=== PATIENT | female | born 1990 | race Caucasian/White ===

== ENCOUNTER → 2020-07-07 13:52 | Outpatient (BNVA) | payer OTHER, SELFPAY | PROVIDERS: Visit Provider Orthopaedic Surgery | DX: M67.431 Ganglion, right wrist (principal) | CPT/HCPCS: 99202 ==

== ENCOUNTER 2021-04-28 11:28 | Outpatient (REF) | payer OTHER, SELFPAY | END 2021-04-28 11:29 | disposition home or self-care (01) | LOC: HO.LAB 11:28 | PROVIDERS: Visit Provider Obstetrics & Gynecology | DX: R87.610 Atypical squamous cells of undetermined significance on cytologic smear of cervix (ASC-US) (principal); R87.810 Cervical high risk human papillomavirus (HPV) DNA test positive | CPT/HCPCS: 57454; 88305; 88342; 88360 ==

== ENCOUNTER 2021-05-05 14:59 | Outpatient (REF) | payer OTHER, SELFPAY ==
[2021-05-06 03:31] LABS: CT PCR NOT DETECTED (Not Detect.); NG PCR NOT DETECTED (Not Detect.)
[2021-05-06 08:50] LABS: BV Int Neg Control Negative (Negative); BV Int Pos Control Positive (Positive)
== END 2021-05-05 15:00 | disposition home or self-care (01) ==
LOC: HO.LAB 14:59
PROVIDERS: PCP Student in an Organized Health Care Education/Training Program; Visit Provider Obstetrics & Gynecology
DX: N76.0 Acute vaginitis (principal); B96.89 Other specified bacterial agents as the cause of diseases classified elsewhere
CPT/HCPCS: 87480; 87491; 87510; 87591; 87660; 99212

== ENCOUNTER → 2021-05-13 11:33 | Outpatient (BNVA) | payer OTHER, SELFPAY | PROVIDERS: PCP Student in an Organized Health Care Education/Training Program; Visit Provider Obstetrics & Gynecology ==

== ENCOUNTER → 2022-06-06 14:54 | Outpatient (BNVA) | payer OTHER, SELFPAY | PROVIDERS: PCP Student in an Organized Health Care Education/Training Program; Referring Provider Student in an Organized Health Care Education/Training Program; Visit Provider Surgery | DX: K64.8 Other hemorrhoids (principal) | CPT/HCPCS: 46600; 99202 ==

== ENCOUNTER 2022-10-18 14:43 | Outpatient (REF) | payer OTHER, SELFPAY ==
[2022-10-19 04:18] LABS: CT PCR NOT DETECTED (Not Detect.); NG PCR NOT DETECTED (Not Detect.)
[2022-10-19 15:38] LABS: BV Int Neg Control Negative (Negative); BV Int Pos Control Positive (Positive)
== END 2022-10-18 14:44 | disposition home or self-care (01) ==
LOC: HO.LNP 14:43
PROVIDERS: Visit Provider Advanced Practice Midwife
DX: B37.31 Acute candidiasis of vulva and vagina (principal); Z11.3 Encounter for screening for infections with a predominantly sexual mode of transmission
CPT/HCPCS: 0353U; 87480; 87510; 87660

== ENCOUNTER 2023-05-23 15:06 | Outpatient (REF) | payer OTHER, SELFPAY ==
[2023-05-23 17:50] LABS: Estimated Average Glucose 80 mg/dL; Hemoglobin A1c % 4.4 % (<6.0)
[2023-05-23 18:12] LABS: Alanine Aminotransferase 10 U/L (0-31); Aspartate Amino Transferase 12 U/L (5-31)
[2023-05-24 08:54] LABS: HIV AB/AG Nonreactive (Nonreactive); HIV Num 1 0.05 S/CO (0.00-0.99)
[2023-05-24 14:49] LABS: BV Int Neg Control Negative (Negative); BV Int Pos Control Positive (Positive)
== END 2023-05-23 15:07 | disposition home or self-care (01) ==
LOC: HO.CHCLDS 15:06
PROVIDERS: Visit Provider Advanced Practice Midwife
DX: Z11.3 Encounter for screening for infections with a predominantly sexual mode of transmission (principal); Z11.4 Encounter for screening for human immunodeficiency virus [HIV]; B37.31 Acute candidiasis of vulva and vagina; N89.8 Other specified noninflammatory disorders of vagina; Z79.899 Other long term (current) drug therapy; Z83.3 Family history of diabetes mellitus
CPT/HCPCS: 83036; 84450; 84460; 87389; 87480; 87510; 87660

== ENCOUNTER 2023-06-29 09:36 | Outpatient (AMB) | payer OTHER, SELFPAY ==
--- NOTE | 2023-06-29 09:40 | MHC.OFFVIS ---
Intake Vital Signs 06/29/23 09:41 Height 5 ft 11 in Weight 201 lb 6 oz BMI 28.1 BP 112/64 Blood Pressure Location Rt brachial Position Sitting Respiration 17 Pulse 93 Pulse Source Pulse Oximeter Pulse Oximetry (%) 100 Oxygen Delivery Method Room Air Intake Visit Reasons: Migraines, left vertebral stent , Vertebral artery dissection Intake Note: Pt presents to the office for new pt evaluation for Migraines. 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 About 1 year ago she had severe left shoulder pain, neck pain - found to have vertebral artery dissection, had vertebral artery stent done.she was seen by neurosurgery 6 mths after the procedure and was told that the stent was stable. she reports long h/o migraines Initially the pain was in her TMJ and ears and then transforms to unilateral eye pain and temperoparietal headache, pressure or pounding - she saw ENT and was told it was migraines as she also had nausea vomiting photophobia phonophobia, tunnel vision, dizziness etc.They lasted few days and had multiple ER visits.she had 2-3 migraines lasting 3-4 days a episode. Since her vertebral artery stent , the migraines have changed. Now she feels the headaches start in her neck and radiates to eye temporal region and ears with nausea, vomiting, photophobia phonophobia . It can last 1-2 days. It is less frequent now- 1 a month. she takes tylenol as needed or tries to sleep it off.she was tried on butalbital , gabapentin 100mg may help. Her menstrual periods are regular. she has bruxism and invisalign has helped a little. she reports some gasping arousals when she is congested. 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 Reproductive History Menstrual Age of Menarche: 13 Physical Exam Vital Signs: Last Vital Signs Pulse 93 06/29/23 09:41 Resp 17 06/29/23 09:41 BP 112/64 06/29/23 09:41 Pulse Ox 100 06/29/23 09:41 Oxygen Delivery Method Room Air 06/29/23 09:41 BMI result Body Mass Index 28.1 Const Orientation/consciousness: patient oriented x3 Eyes Pupils: Equal, round and reactive pupils present Neck Neck: Yes no meningeal signs Neuro Other: mallampatti grade 4 Gustavo tightness of TMJ General: patient oriented x3, gait normal, tone normal, moves all extremities, Normal light touch and pain sensation, no meningeal signs and no focal motor deficits Cranial nerves: Yes Facial sensation intact/muscles of mastication intact, Yes Equal, round and reactive pupils present, Yes Bilaterally intact EOM present, Yes Nystagmus not present, Yes Normal facial strength present, Yes Midline tongue present and Yes Symmetric palate elevation present Cognition (Neuro): normal cognition Gait exam (Neuro): Normal gait present Motor exam (neuro): 5/5 motor strength present throughout and Normal motor muscle tone present throughout Deep tendon reflexes (DTR's): Right triceps reflex intensity grade: 2+, Left triceps reflex intensity grade: 2+, Rt Biceps (C5, C6): 2+, Left biceps reflex intensity grade: 2+, Right brachioradialis reflex intensity grade: 2+, Left brachioradialis reflex intensity grade: 2+, Right patellar reflex intensity grade: 2+ and Left patellar reflex intensity grade: 2+ Coordination: [id number] test normal Assessment & Plan Assessment & Plan (1) Migraine headache: Code(s): G43.909 - Migraine, unspecified, not intractable, without status migrainosus Qualifiers: Migraine type: migraine (< 15 days per month) without aura (2) Vertebral artery dissection: Code(s): I77.74 - Dissection of vertebral artery (3) TMJ (temporomandibular joint disorder): Code(s): M26.609 - Unspecified temporomandibular joint disorder, unspecified side Plan H/o left vertebral artery dissection with a stent - f/u neurosurgery at [facility] I will trail her on magnesium 400mgq hs Gabapentin 300mg qhs Vit B 2 400mg qam F/u Dentist for invislign and possible security officers and guards will consider PT and muscle relaxant DO NOT USE TRIPTANS due to h/o vertebral artery dissection Notes form [facility] Medications: New magnesium oxide 400 mg PO BEDTIME 30 tabs 6RF gabapentin 300 mg PO BEDTIME 30 caps 6RF riboflavin (vitamin B2) 400 mg PO QAM 30 tabs 6RF Coding Level of Care Code New Pt Level 4 (63923) Diagnoses Migraine headache G43.909 Migraine type: migraine (< 15 days per month) without aura Vertebral artery dissection I77.74 TMJ (temporomandibular joint disorder) M26.609
[2023-06-29 09:41] VITALS: BP 112/64; PULSE 93; RESP 17; O2SAT 100; BMI 28.1
== END 2023-06-29 10:28 | disposition home or self-care (01) ==
PROVIDERS: PCP Student in an Organized Health Care Education/Training Program; Visit Provider Psychiatry & Neurology Neurology
DX: G43.909 Migraine, unspecified, not intractable, without status migrainosus (principal); I77.74 Dissection of vertebral artery; M26.609 Unspecified temporomandibular joint disorder, unspecified side
CPT/HCPCS: 99204

== ENCOUNTER → 2023-06-29 09:36 | Outpatient (BNVA) | payer OTHER, SELFPAY | PROVIDERS: PCP Student in an Organized Health Care Education/Training Program; Visit Provider Psychiatry & Neurology Neurology | DX: G43.909 Migraine, unspecified, not intractable, without status migrainosus (principal); I77.74 Dissection of vertebral artery; M26.609 Unspecified temporomandibular joint disorder, unspecified side | CPT/HCPCS: 99202 ==

== ENCOUNTER 2023-09-05 17:46 | Outpatient (REF) | payer OTHER, SELFPAY ==
[2023-09-06 08:39] LABS: Bacterial Vaginosis PCR NEGATIVE (Negative); Candida Group PCR NOT DETECTED (Not Detect); Candida glab krusei PCR NOT DETECTED (Not Detect); Trichomonas vaginalis PCR NOT DETECTED (Not Detect)
== END 2023-09-05 17:47 | disposition home or self-care (01) ==
LOC: HO.HHCLNP 17:46
PROVIDERS: Visit Provider Advanced Practice Midwife
DX: N89.8 Other specified noninflammatory disorders of vagina (principal)
CPT/HCPCS: 0352U

== ENCOUNTER 2023-09-13 13:54 | Outpatient (REF) | payer OTHER, SELFPAY ==
--- NOTE | ~2023-09-13 | US_ITS ---
EXAMINATION: US PELVIS CLINICAL INFORMATION: Heavy menses. Vaginal bleeding. Possible PE. COMPARISON: None available. TECHNIQUE: Ultrasound of the pelvis is performed using both transabdominal and transvaginal transducers along with Doppler. Transvaginal imaging is performed due to inadequate visualization transabdominally. FINDINGS: Uterus: The uterus is anteverted and measures 7.3 x 2.9 x 3.8 cm. The double wall endometrial thickness is 3 mm. The uterus is smooth in contour and has normal myometrial echogenicity. No visible fibroid. Adnexa: Right ovary measures 3.2 x 2.3 x 1.4 cm. Volume 5.4 mL. Normal color Doppler. Left ovary measures 3.2 x 1.4 x 1.5 cm. Volume 3.5 mL. Normal color Doppler. US/US pelvic and transvaginal IMPRESSION: Unremarkable pelvic ultrasound.
== END 2023-09-13 13:55 | disposition home or self-care (01) ==
LOC: HO.US 13:54
PROVIDERS: PCP Student in an Organized Health Care Education/Training Program; Visit Provider Advanced Practice Midwife
DX: N92.0 Excessive and frequent menstruation with regular cycle (principal)
CPT/HCPCS: 76830; 76856

== ENCOUNTER 2023-12-26 10:06 | Outpatient (AMB) | payer OTHER, SELFPAY ==
--- NOTE | 2023-12-26 10:10 | A.OFFVIS_ITS ---
Vital Signs 12/26/23 10:11 Height 5 ft 11 in BP 115/74 Blood Pressure Location Lt brachial Position Sitting Pulse 90 Pulse Source Pulse Oximeter Pulse Oximetry (%) 99 Oxygen Delivery Method Room Air Intake Visit Reasons: Follow up Dough Puncher Required: No Bowling Ball Patcher: Bowling Ball Patcher Present Accompanied by: Self / Same As Patient Allergies soy Allergy (Verified 12/26/23 10:13) throat swelling tree and shrub pollen Allergy (Verified 12/26/23 10:13) Fatigued IVP Allergy (Intermediate, Uncoded 06/29/23 09:45) Headache Medication List - Last Reconciled 12/26/23 by María Esteban MD aspirin 81 mg PO DAILY gabapentin 300 mg PO BEDTIME magnesium oxide 400 mg PO BEDTIME riboflavin (vitamin B2) 400 mg PO QAM triamcinolone acetonide 0.1% appl topical DAILY HPI Comments Details: 33y/o right handed female with h/o Tricia Danlos - hypermobile type, 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 she still has episodes of jaw clenching. Initial visit history: About 1 year ago she had severe left shoulder pain, neck pain - found to have vertebral artery dissection, had vertebral artery stent done.she was seen by neurosurgery 6 mths after the procedure and was told that the stent was stable. she reports long h/o migraines Initially the pain was in her TMJ and ears and then transforms to unilateral eye pain and temperoparietal headache, pressure or pounding - she saw ENT and was told it was migraines as she also had nausea vomiting photophobia phonophobia, tunnel vision, dizziness etc.They lasted few days and had multiple ER visits.she had 2-3 migraines lasting 3-4 days a episode. Since her vertebral artery stent , the migraines have changed. Now she feels the headaches start in her neck and radiates to eye temporal region and ears with nausea, vomiting, photophobia phonophobia . It can last 1-2 days. It is less frequent now- 1 a month. she takes tylenol as needed or tries to sleep it off.she was tried on butalbital , gabapentin 100mg may help. Her menstrual periods are regular. she has bruxism and invisalign has helped a little. she reports some gasping arousals when she is congested. 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 Reproductive History Menstrual Age of Menarche: 13 Physical Exam Vital Signs: Last Vital Signs Pulse 90 12/26/23 10:11 BP 115/74 12/26/23 10:11 Pulse Ox 99 12/26/23 10:11 Oxygen Delivery Method Room Air 12/26/23 10:11 Const Orientation/consciousness: patient oriented x3 Eyes Pupils: Equal, round and reactive pupils present Neck Neck: Yes no meningeal signs Neuro Other: mallampatti grade 4 Gustavo tightness of TMJ General: patient oriented x3, gait normal, tone normal, moves all extremities, Normal light touch and pain sensation, no meningeal signs and no focal motor deficits Cranial nerves: Yes Facial sensation intact/muscles of mastication intact, Yes Equal, round and reactive pupils present, Yes Bilaterally intact EOM present, Yes Nystagmus not present, Yes Normal facial strength present, Yes Midline tongue present and Yes Symmetric palate elevation present Cognition (Neuro): normal cognition Gait exam (Neuro): Normal gait present Motor exam (neuro): 5/5 motor strength present throughout and Normal motor muscle tone present throughout Coordination: [id number] test normal Assessment & Plan Assessment & Plan (1) Migraine headache: Code(s): G43.909 - Migraine, unspecified, not intractable, without status migrainosus Category: Medical Qualifiers: Migraine type: unspecified Status migrainosus presence: without status migrainosus Intractability: not intractable Qualified Code(s): G43.909 - Migraine, unspecified, not intractable, without status migrainosus (2) Vertebral artery dissection: Code(s): I77.74 - Dissection of vertebral artery (3) TMJ (temporomandibular joint disorder): Code(s): M26.609 - Unspecified temporomandibular joint disorder, unspecified side Category: Medical Plan H/o left vertebral artery dissection with a stent - f/u neurosurgery at [facility] Continue magnesium 400mgq hs Gabapentin 300mg qhs - takes PRN F/u Dentist for invislign and possible guard immigration will consider PT and muscle relaxant DO NOT USE TRIPTANS due to h/o vertebral artery dissection Notes form [facility] Orders: Orders PT Evaluation and Treatment Today M26.609 - Unspecified temporomandibular joint disorder, unspecified side Medications: Discontinued riboflavin (vitamin B2) Discontinued Reason: Patient no longer taking 400 mg PO QAM 30 tabs 6RF Coding Level of Care Code Est Pt Level 4 (86489) Complex EM visit Add On G2211 Diagnoses Migraine without status migrainosus, not intractable, unspecified migraine type G43.909 Migraine type: unspecified Status migrainosus presence: without status migrainosus Intractability: not intractable Vertebral artery dissection I77.74 TMJ (temporomandibular joint disorder) M26.609
[2023-12-26 10:11] VITALS: BP 115/74; PULSE 90; O2SAT 99
== END 2023-12-26 10:33 | disposition home or self-care (01) ==
PROVIDERS: PCP Student in an Organized Health Care Education/Training Program; Visit Provider Psychiatry & Neurology Neurology
DX: G43.909 Migraine, unspecified, not intractable, without status migrainosus (principal); I77.74 Dissection of vertebral artery; M26.609 Unspecified temporomandibular joint disorder, unspecified side
CPT/HCPCS: 99214; G2211

== ENCOUNTER → 2023-12-26 10:06 | Outpatient (BNVA) | payer OTHER, SELFPAY | PROVIDERS: PCP Student in an Organized Health Care Education/Training Program; Visit Provider Psychiatry & Neurology Neurology | DX: G43.909 Migraine, unspecified, not intractable, without status migrainosus (principal); M26.609 Unspecified temporomandibular joint disorder, unspecified side; I77.74 Dissection of vertebral artery | CPT/HCPCS: 99212 ==

== ENCOUNTER 2024-02-05 14:41 | Outpatient (REF) | payer OTHER, SELFPAY ==
[2024-02-06 09:24] LABS: Herpes Simplex Type 1 IgG <0.90 index; Herpes Simplex Type 2 IgG <0.90 index
[2024-02-06 13:39] LABS: Bacterial Vaginosis PCR POSITIVE (Negative); Candida Group PCR DETECTED (Not Detect); Candida glab krusei PCR NOT DETECTED (Not Detect); Trichomonas vaginalis PCR NOT DETECTED (Not Detect)
== END 2024-02-05 14:42 | disposition home or self-care (01) ==
LOC: HO.HHCL 14:41
PROVIDERS: Visit Provider Advanced Practice Midwife
DX: L29.3 Anogenital pruritus, unspecified (principal); Z11.3 Encounter for screening for infections with a predominantly sexual mode of transmission
CPT/HCPCS: 0352U; 36415; 86695; 86696; 87255

== ENCOUNTER 2024-07-22 13:07 | Outpatient (AMB) | payer OTHER, SELFPAY ==
--- NOTE | 2024-07-22 13:11 | MHC.OFFVIS ---
Vital Signs 07/22/24 13:12 Height 5 ft 11 in Weight 240 lb BMI 33.5 Intake Visit Reasons: Follow up-[facility] Intake Note: patient following up PT. 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 The aura lasts 2 hrs - these migraines lasts for 3-4 days she also has migraines without aura during periods .It lasts 1-2 days , she tries to sleeps it off, and takes gabapentin.she does not take gabapentin regularly .she is wearing invisalign. she still has episodes of jaw clenching. Initial visit history: About 1 year ago she had severe left shoulder pain, neck pain - found to have vertebral artery dissection, had vertebral artery stent done.she was seen by neurosurgery 6 mths after the procedure and was told that the stent was stable. she reports long h/o migraines Initially the pain was in her TMJ and ears and then transforms to unilateral eye pain and temperoparietal headache, pressure or pounding - she saw ENT and was told it was migraines as she also had nausea vomiting photophobia phonophobia, tunnel vision, dizziness etc.They lasted few days and had multiple ER visits.she had 2-3 migraines lasting 3-4 days a episode. Since her vertebral artery stent , the migraines have changed. Now she feels the headaches start in her neck and radiates to eye temporal region and ears with nausea, vomiting, photophobia phonophobia . It can last 1-2 days. It is less frequent now- 1 a month. she takes tylenol as needed or tries to sleep it off.she was tried on butalbital , gabapentin 100mg may help. Her menstrual periods are regular. she has bruxism and invisalign has helped a little. she reports some gasping arousals when she is congested. 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 Reproductive History Menstrual Age of Menarche: 13 Physical Exam Const Orientation/consciousness: patient oriented x3 Eyes Pupils: Equal, round and reactive pupils present Neck Neck: Yes no meningeal signs Neuro Other: mallampatti grade 4 Gustavo tightness of TMJ General: patient oriented x3, gait normal, tone normal, moves all extremities, Normal light touch and pain sensation, no meningeal signs and no focal motor deficits Cranial nerves: Yes Facial sensation intact/muscles of mastication intact, Yes Equal, round and reactive pupils present, Yes Bilaterally intact EOM present, Yes Nystagmus not present, Yes Normal facial strength present, Yes Midline tongue present and Yes Symmetric palate elevation present Cognition (Neuro): normal cognition Gait exam (Neuro): Normal gait present Motor exam (neuro): 5/5 motor strength present throughout and Normal motor muscle tone present throughout Coordination: [id number] test normal Assessment & Plan Assessment & Plan (1) Migraine with aura, intractable, without status migrainosus: Code(s): G43.119 - Migraine with aura, intractable, without status migrainosus Category: Medical (2) Migraine headache: Code(s): G43.909 - Migraine, unspecified, not intractable, without status migrainosus Category: Medical Qualifiers: Intractability: not intractable Migraine type: unspecified Status migrainosus presence: without status migrainosus Qualified Code(s): G43.909 - Migraine, unspecified, not intractable, without status migrainosus (3) Vertebral artery dissection: Code(s): I77.74 - Dissection of vertebral artery (4) TMJ (temporomandibular joint disorder): Code(s): M26.609 - Unspecified temporomandibular joint disorder, unspecified side Category: Medical Plan I will trial her on baclofen 5mg qhs and zofran 4 mg as needed for nausea H/o left vertebral artery dissection with a stent - f/u neurosurgery at [facility] Continue magnesium 400mgq hs Gabapentin 300mg qhs - takes PRN F/u Dentist for invislign and possible building guard deputy sheriff will consider PT DO NOT USE TRIPTANS due to h/o vertebral artery dissection Notes form [facility] Medications: New baclofen 5 mg PO BEDTIME 30 tabs 6RF ondansetron 4 mg PO Q8H PRN 10 tabs 0RF nausea and vomiting Coding Level of Care Code Est Pt Level 4 (68710) Complex EM visit Add On G2211 Diagnoses Migraine with aura, intractable, without status migrainosus G43.119 Migraine without status migrainosus, not intractable, unspecified migraine type G43.909 Intractability: not intractable Migraine type: unspecified Status migrainosus presence: without status migrainosus Vertebral artery dissection I77.74 TMJ (temporomandibular joint disorder) M26.609
[2024-07-22 13:12] VITALS: BMI 33.5
--- OUTSIDE RECORDS SUMMARY | 2024-07-22 14:28 | XMS_ITS | Encounter Summary ---
Author Organization [employer] Address [address] [place] [address] Care Team Providers Care Sales Professional Bilingual Name Role Phone Yoko Zhang MD Primary Care Provider [phone] Encounter Details Date Type Department Care Team ([facility] st Contact Info) Description 03/17/2023 Orders Only [facility] [address], [place] [id number] Nae Villareal MD [address] [place] [address] Vaginal discharge (Primary Dx) Social History Tobacco Use Types Packs/Day Years Used Date Smoking Tobacco: Never Smokeless Tobacco: Never Alcohol Use Standard Drinks/Week Comments Never 0 (1 standard drink = 0.6 oz pur e alcohol) Housing Stability Answer Date Recorded What is your housing situation today? I have alvaro tomlinson 01/02/[address] you li ve. Do you have problems with any of the following? None of the above 01/02/2023 Food Insecurity Answer Date Recorded Within the past 12 months, y ou worried that your food would run out before you got money to buy more: Never True 01/02/2023 Within the past 12 months,th e food you bought just didn't last and you didn't have enough money to get more: Never True Transportation Answer Date Recorded In the past 12 months, has l ack of transportation kept you from medical appts, meetings, work or from getting things needed for daily living? No 01/02/2023 Utilities Answer Date Recorded In the past 12 months, has t he electric, gas, oil or water company threatened to shut off services in your home? No 01/02/2023 Comments No Sex and Gender Information Value Date Recorded Sex Assigned at Female 01/17/2022 10:36 AM EDT Legal Sex Female 10:36 AM EDT Gender Identity Female 01/17/2022 10:36 AM EDT Sexual Orientation Choose not to disclose 2021 10:36 AM EDT documented as of this encounter Plan of Treatment Not on file documented as of this encounter Visit Diagnoses Diagnosis Vaginal discharge- Primary Leukorrhea, not specified as infective documented in this encounter Care Teams Sales Professional Bilingual Relationship Specialty Start Date End Date Yoko Zhang MD [address] [place] [phone] PCP - General Family Medicine 06/21/19 documented as of this encounter
--- OUTSIDE RECORDS SUMMARY | 2024-07-22 14:28 | XMS_ITS | Data Portability ---
Author Organization [place] - [facility], Allergy Address [address] [address] Assessment No assessment recorded. Plan of Treatment Reminders Order Date Submit Date Provider Last Modified By Organization Details Last Modified Time Details Appointments None record ed. Lab None record ed. Referral None record ed. Procedures None record ed. Surgeries None record ed. Imaging None record ed. Medication Orders None record ed. Patient TargetsNo targets recorded. Patient Instructions Encounter Date Encounter Id Patient Instructions Last Modified By Organization Details Last Modified Time 08/11/2023 1555 Exam is not typical for thrush. Patient would like to d/c nystatin and I find this reasonable. For the halitosis, reviewed oral hygiene practices and recommend discussing with dentist. For the tonsil stone, recommend saltwater gargles after meals and before bed. Discussed that EBV titers indicate past infection, not re-activated. Reviewed symptoms that should prompt attention to check for reactivation due to the need to avoid trauma to the spleen etc. Follow up as needed [email or web address] Not available 08/16/2023 13:35:23 Reason for Referral None Reported. Results Created Date Observation Date Name Description Value Unit Range Abnormal Flag Note LastModifiedBy Organization Detail LastModifiedTime 08/11/19 24 08/14/2023 AEROB IC BACTE RIAL CULTU RE aerobic bacterial culture Final report Not Available [facility] ([facility]) [address] [place], [address], 09/12/2023 08:25:46 08/11/19 24 08/14/2023 AEROB IC BACTE RIAL CULTU RE result 1 Mixed site nhugn. Heavy growt h Not Available [facility] ([facility]) [address] [place], [address], 09/12/2023 08:25:46 08/11/19 24 09/12/2023 FUNGU S (MYCO LOGY) CULTU RE fungus (mycology) culture Final report Not Available [facility] ([facility]) [address] [facility], [place], [address], 09/12/2023 08:25:46 08/11/19 24 09/12/2023 FUNGU S (MYCO LOGY) CULTU RE result 1 COMMEN T No yeast or mold isola silviano after 4 weeks . Not Available [facility] ([facility]) [address] [facility], [place], [address], 09/12/2023 08:25:46 11/08/19 24 01/01/2020 imagi ng/di agnos tic resul t No observ ation record ed. [email or web address] Not Available 06:00:11 Result Notes None recorded. Problems Name Problem SNOMED Code Status Onset Date Resolution Date Notes Provider Name and Address Organization Details Recorded Time Chronic tonsillit is 91396645 Active 2019 Chronic tonsillit is; Note: Date Diagnosed : 12/03/2019 10:49 AM (J35.01) Not Available [facility] 4 02:23:17 Disorder of nasal sinus 4970536 Active 2021 Other specified disorders of nose and nasal sinuses; Note: Date Diagnosed : 06/28/2021 4:18 PM (J34.89) Not Available [facility] 4 02:23:16 Disorder of the nose 95749813 Active 2021 Other specified disorders of nose and nasal sinuses; Note: Date Diagnosed : 06/28/2021 4:18 PM (J34.89) Not Available [facility] 4 02:23:16 Orthostat ic hypotensi on 84071735 Active 2019 Hypotensi on, postural; Note: Date Diagnosed : 07/22/2019 2:25 PM (I95.1) Not Available [facility] 4 02:23:25 Deviated nasal septum 222471012 Active 2021 Deviated nasal septum; Note: Date Diagnosed : 06/28/2021 4:17 PM (J34.2) Not Available [facility] 4 02:23:40 Migraine without aura, not refractor y 214810829 Active 2019 Migraine without aura, not intractab le, without status migrainos us; Note: Date Diagnosed : 0 5:18 PM (G43.009) Not Available [facility] 4 02:23:36 Impacted cerumen of bilateral ears 46148859824 21192 Active 2019 Impacted cerumen, bilateral ; Note: Date Diagnosed : 07/22/2019 2:25 PM (H61.23) Not Available [facility] 4 02:23:54 Bilateral temporoma ndibular joint pain 23401694639 224261 Active 2019 Arthralgi a of bilateral temporoma ndibular joint; Note: Date Diagnosed : 12/03/2019 10:49 AM (M26.623) Not Available [facility] 4 02:23:26 Dizziness and giddiness 277395169 Active 2019 Dizziness and giddiness ; Note: Date Diagnosed : 0 5:18 PM (R42) Not Available [facility] 4 02:23:18 Cystic fibrosis 456256147 Active 2021 Cystic fibrosis NOS-Other and unspecifi ed disorders of metabolis m:; Note: Date Diagnosed : 06/28/2021 4:17 PM (277.00) Not Available [facility] 4 02:23:34 Cardiac arrhythmi a 596252009 Active 2019 Other specified cardiac arrhythmi as; Note: Date Diagnosed : 0 5:17 PM (I49.8) Not Available [facility] 4 02:23:16 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, unspecifi ed; Note: Changed from Q79.6 to Q79.60 ( 2 5:30 PM) , Date Diagnosed : 0 5:17 PM (Q79.6) Not Available [facility] 4 02:23:43 Abnormal auditory perceptio n 77607159 Active 2019 Other abnormal auditory perceptio ns, bilateral ; Note: Date Diagnosed : 07/22/2019 2:25 PM (H93.293) Not Available [facility] hospital 4 02:23:31 Candidias is of mouth 20702917 Active 2023 GERARD MOROCHO PA-C [address] [place], [place], [address] , [place] - [facility] 4 16:08:40 Breath smells unpleasan t 25672243 Active 2023 GERARD MOROCHO PA-C [address] [place], [place], [address] , [place] - [facility] 4 16:09:11 Amygdalol ith 2533113 Active 2023 GERARD MOROCHO PA-C [address] [place], [place], [address] , [place] - [facility] 4 13:31:35 Recurrent acute streptoco ccal tonsillit is 02394623430 885479 Active 2023 Acute recurrent streptoco ccal tonsillit is; Note: Date Diagnosed : 07/20/2023 4:57 PM (J03.01) Not Available [facility] 4 02:23:25 Chronic rhinitis 51721673 Active 2023 Chronic rhinitis; Note: Date Diagnosed : 07/20/2023 4:58 PM (J31.0) Not Available [facility] 4 02:23:51 Chronic disease of tonsils AND/OR adenoids 01784751 Active 2023 Calculus, tonsil; Note: Date Diagnosed : 07/20/2023 4:57 PM (J35.8) Not Available [facility] 4 02:23:54 Problem Notes None recorded. Procedures Surgical History None recorded. Imaging Results Imaging Date Name Status [facility]Modified by [facility] Details LastModified Time 01/01/2020 imaging/diag nostic result completed [email or web address] Information not available 11/08/2023 06:00:11 Procedure Notes None recorded. Medical Equipment None Reported. Allergies Allergen ID Allergen Name Allergen Category Reaction Reaction Severity Criticality Documentation Date Start Date Code Code System Note Provider Name and Address Organization Details Recorded Time 805732 blue dye medicatio n Not available Not available Not available 08/11/2023 UNK Real campos [place] - [facility] 4 15:48:34 32708 tree and shrub pollen environme nt,medica tion other Not available Not available 08/01/2023 30871 UNK React ion: unkno wn, unspe cifie d;; Not Available [facility] 4 00:53:54 52857 Glycine max (substanc e) environme nt,food,m edication other Not available Not available 08/01/2023 90509 5007 SNOMED React ion: unkno wn, unspe cifie d;; Not Available [facility] 4 00:54:01 Medications Name Sig Start Date Stop Date Status Note LastModified by Organization Details LastModified Time nystatin 100,000 unit/mL oral suspensio n Take 5 ml by mouth four times a day 2023 active Medicatio n ID: [id number] Du ration Value: 21 Brand Name: nystatin Send Method: E-Prescri bed Subs Allowed: subs OK Medica tionGener icName: nystatin Not Available Not Available Not Available amoxicill in 875 mg tablet 01/28 completed Medicatio n ID: [id number] Du ration Value: 10 Brand Name: amoxicill in Send Method: E-Prescri bed Subs Allowed: subs OK Medica tionGener icName: amoxicill in Not Available Not Available Not Available Asprin Ec Low Dose 81 mg tablet,de layed release Take 1 tablet every day by oral route. active Not Available Not Available No t Available gabapenti n active Not Available Not Available Not Available Vitamin B12 active Not Available Not Available Not Available Zoraida (28) 3 mg-0.02 mg tablet 2019 active Medicatio n ID: [id number] Du ration Value: 90 Brand Name: Zoraida Zepeda) Send Method: E-Prescri bed Subs Allowed: subs OK Specia l Instructi on: TAKE 1 TABLET ONCE A DAY, SKIP INACTIVE TABLETS M edication GenericNa me: Zoraida (Nichelle) Not Available Not Available Not Available Vitals Date Recorded Body height Body mass index (BMI) Body weight Provider Name and Address Organization Details Last Updated DateTime 08/11/2023 180.34 cm 27.1 kg/m2 16765.92 g Real Barcenas [place] - [facility] 08/11/2023 15:48:19 Social History Question Answer Notes LastModified by Organizat ion Details LastModified Time Tobacco Smoking Status Never Smoker Real campos [place] - [facility] 08/11/2023 15:50:33 What Is Your Level Of Alcohol Consumption? None [email or web address] Information not available 08/11/2023 Do You Use Any Illicit Or Recreational Drugs? No [email or web address] Information not available 08/11/2023 Do You Or Have You Ever Used Any Other Forms Of Tobacco Or Nicotine? No [email or web address] Information not available 08/11/2023 Sex: Unknown Functional Status None recorded. Mental Status None recorded. Family History Nothing Reported. Medical History No medical history recorded. Gynecological HistoryNo gynecological history recorded. Obstetrics History GPAL:G 0 P 0 0 0 0 Past Encounters Encounter ID Performer Location Encounter Start Date Encounter Closed Date Diagnosis/Indication Diagnosis SNOMED-CT Code Diagnosis ICD10 Code Diagnosis Note [id number] GERARD MOROCHO PA-C [facility] [address] [address] 08/11/2023 15:37:14 08/11/2023 16:17:35 Breath smells unpleasant 22281566 R19.6 Amygdalolith 3642759 J35 .8 Health Concerns Section Related Observation LastModified by Organization Detai ls LastModified Time None Recorded Concern Status LastModified by Organization Details LastModified Time None Recorded Advance Directives Directive None Recorded Payers Encounter Date Sequence Insurance Name Policy Number Policy Montoya Covered Member ID Montoya Member ID Guarantor Name 08/11/2023 1 [facility] NET PLAN (MEDICAID HMO) [id number] Iris Garcia [id number] Iris Garcia Notes Date Note Type Note Provider Name and Address Organization Details Recorded Time 08/11/2023 text/html 33 year old helio stephens presents for evaluation of the oral cavity. Had a hard time keeping up with the nystatin so she discontinued it. Has not been scraping the tongue. No mouthwash. Has some dental caries that need attention. RANULFO RODRIGUEZ MD [address] [place] [address], [phone], [facility] - [facility] 08/16/2023 16:47:27 OBGyn Episode No OBEpisode recorded.
--- OUTSIDE RECORDS SUMMARY | 2024-07-22 14:28 | XMS_ITS | Clinical Summary ---
Author Organization [employer] Address [address] [place] [address] [address] [place] [address] Care Team Providers Care Routing Clerk Name Role Phone Yoko Zhang MD Primary Care Provider [phone] Allergies Active Allergy Reactions Criticality Noted Date Comments Dust Mite Extract 04/09/2022 Flax Seed Oil 05/24/2022 Molds & Smuts 04/09/2022 Soybean-Containing Drug Products Unknown 06/10/2020 Other reaction(s): Unknown Medications butalbital-aceta minophen-caffein e 50-325-40 MG tablet TAKE 1 TABLET BY MOUTH EVERY 4 HOURS NEEDED FOR HEADACHE 3 Active prochlorperazine (Compazine) 5 MG tablet TAKE 1 TABLET BY MOUTH 3 TIMES A DAY NEEDED FOR NAUSEA/VOMITING 3 Active Senna-Plus 8.6-50 MG tablet TAKE 2 TABLETS BY MOUTH TWICE A DAY 3 Active GaviLAX 17 GM/SCOOP powder TAKE 17 GM BY MOUTH DAILY DISSOLVE IN WATER BEFORE TAKING 3 Active aspirin 81 MG EC tablet Take 81 mg by mouth in the morning. Active cyanocobalamin (Vitamin B-12) 1000 MCG tablet Take 1 tablet by mouth 1 (one) time each day. 3 Active folic acid (Folvite) 1 MG tablet Take 1 tablet by mouth 1 (one) time each day. 3 Active gabapentin (Neurontin) 300 MG capsule Take 1 capsule by mouth in the morning. 3 Active HPV 9-valent (Gardasil-9) suspension prefilled syringe vaccine prefilled syringeIndicatio ns:Need for prophylactic vaccination/inoc ulation against viral disease Bring to office for appointment 0.5 mL 2 3 Active pantoprazole (ProtoNix) 20 MG EC tabletIndication s:Tricia-Danlos syndrome TAKE 1 TABLET (20 MG) BY MOUTH BEFORE BREAKFAST. 90 tablet 3 3 Active clobetasol (Temovate) 0.05 % ointment Apply to affected area twice a day x 7 days 30 g 4 Active metroNIDAZOLE (MetroCream) 0.75 % creamIndications :Rosacea Apply topically 2 times daily. Apply to affected area only. 45 g 2 5 026 Active benzonatate (Tessalon Perles) 100 MG capsuleIndicatio ns:Acute cough Take 1 capsule (100 mg) by mouth if needed in the morning, at noon, and at bedtime for cough for up to 7 days. Do not crush or chew. 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 Encounters Date Type Department Care Team Description 06/18/2024 2:00 PM EDT Office Visit [facility] [address] [place] [address] Nae Villareal MD Acute cough (Primary Dx) 06/18/2024 Travel 06/18/2024 Telephone [facility] [address] [place], [place] [phone] Yoko Zhang MD Nurse Triage 05/07/2024 9:45 AM EST Office Visit [facility] [address] [place] [address] Nae Villareal MD Perioral dermatitis (Primary Dx); [place] 05/07/2024 Travel 05/05/2024 Orders Only [facility] [address] [place] [address] Nae Villareal MD from Last 3 Months Immunizations Name Administration Dates Next Due HPV 9-Valent 07/29/2022,06/17/2022 Pfizer Covid-19 Vaccine 12+ 08/06/2020, Tdap 06/17/2022 Social History Tobacco Use Types Packs/Day Years Used Date Smoking Tobacco: Never Passive Smoke Exposure: Never Smokeless Tobacco: Never Tobacco Cessation:Counseling Given: Not Answered Alcohol Use Standard Drinks/Week Comments Never 0 (1 standard drink = 0.6 oz pur e alcohol) Housing Stability Answer Date Recorded What is your housing situation today? I have alvaro davi 01/02/[address] you li [...] not to disclose 2021 10:36 AM EDT Last Filed Vital Signs Vital Sign Reading Time Taken Comments Blood Pressure 122/75 06/18/2024 2:40 PM EDT Pulse 106 06/18/2024 2:40 PM EDT Temperature 36.2 ??C (97.2 ??F) 06/18/2024 2:40 PM ED T Respiratory Rate 20 06/18/2024 2:40 PM EDT Oxygen Saturation 98% 06/18/2024 2:40 PM EDT Inhaled Oxygen Concentration - - Weight 88.2 kg (194 lb 6.4 oz) 05/07/2024 9:57 A M EST Height 179 cm (5' 10.47 ) 05/07/2024 9:57 AM EST Body Mass Index 27.52 05/07/2024 9:57 AM EST Plan of Treatment Health Maintenance Due Date Last Done Comments Depression Screening 1991 Alcohol/Substance Use Screening 2003 Hepatitis B Vaccines (1 of 3 - 19+ 3-dose series) 06/07/2010 HPV Vaccines (3 - 3-dose SCD M series) 12/17/2022 07/29/2022, 06/17/2022 SDOH Screening 04/26/2023 04/26/2022 Influenza Vaccine (#1) 2023 Family Planning (PISQ) 02/04/2025 02/05/2024 Tobacco Screening 05/07/2025 05/07/2024 Pap Smear 05/24/2025 05/24/2022, 02/02/2021, 02/02/2021 Cervical Cancer Screening 05/25/2027 HPV/Cotest 05/25/2027 05/24/2022, 02/02/2021 DTaP/Tdap/Td Vaccines (2 - T d or Tdap) 06/17/2032 06/17/2022 Zoster Vaccines (1 of 2) 06/07/2041 RSV Patients and Patients Aged 60 years or older (1 - 1-dose 75+ series) 06/07/2066 Hepatitis C Screening Completed 07/15/2022 HIV Screening Completed 05/23/2023 COVID-19 Vaccine Completed 12/07/2023, 08/06/2020, 07/16/2020 HIB Vaccines Aged Out No longer eligi ble based on patient's age to complete this topic Hepatitis A Vaccines Aged Out No long er eligible based on patient's age to complete this topic IPV Vaccines Aged Out No longer eligi ble based on patient's age to complete this topic Meningococcal Vaccine Aged Out No dave peyman eligible based on patient's age to complete this topic Pneumococcal Vaccine: Pediatrics (0 to 5 Years) and At-Risk Patients (6 to 49) Years) Aged Out No longer eligible b ased on patient's age to complete this topic RSV under 20 months Aged Out No longe r eligible based on patient's age to complete this topic Rotavirus Vaccines Aged Out No longer eligible based on patient's age to complete this topic Procedures Procedure Name Priority Date/Time Associated Diagnosis Comments HIV 1/2 ANTIGEN/ANTIBODY, FOURTH GENERATION W/RFL Routine 05/23/2023 3:09 PM EST Encntr screen for infections w sexl mode of transmiss HEPATITIS PANEL, GENERAL Routine 07/15/2022 12:44 PM EDT Need for prophylactic vaccination/inoculati on against viral disease IMAGE-GUIDED PAP W/AGE BASED SCR PROTOCOLS Routine 05/24/2022 12:31 PM EST Cervical cancer screening from Last 3 Months or Most Recently Relevant to Health Maintenance Results * HIV-1/2 Antigen and Antibodies, Fourth Generation, with Reflexes (05/23/2023 3:09 PM EST) HIV AB/AG Nonreactive Nonreactive [facility] Comment:HIV-1 p24 Ag and/or HIV-1/HIV-2 Ab not detected.A test result that is nonreactive does not exclude thepossibility of exposure to or infection with HIV-1 and/orHIV-2. Nonreactive results in this assay for individualswith prior exposure to HIV-1 and/or HIV-2 may be due toantigen and antibody levels that are below the limit ofdetection of this assay.The [employer] HIV Ag/Ab Combo assay result andsupplemental assay results should be interpreted inconjunction with the patient's clinical presentation,history and other laboratory results. If the results areinconsistent with clinical evidence, additional testing issuggested to confirm the result. Blood Venous blood specimen / Unknown 05/23/2023 3:09 PM EST 05/23/2023 5:30 PM EST us Ana María Jo [facility] LAB BLOOD ORDERABLES Diana l Result [facility] [address] [place] [phone] * (ABNORMAL) Hepatitis Panel, General (07/15/2022 12:44 PM EDT) Hepatitis A Antibody Total REACTIVE( A) NON-REACT POLI [facility] [place] [employer] Comment: For additional information, please refer to http://MailMeNetwork.Navidog/faq/XMN359 (This link is being provided for informational/ educational purposes only.) Hepatitis B Surface Antibody QL REACTIVE( A) NON-REACT POLI [facility] [place] Hepatitis B Surface Ag NON-REACT POLI NON-REACT POLIRelativity Media PL [place] Hepatitis B Core Antibody Total NON-REACT POLI NON-REACT POLIRelativity Media PL [facility] C Antibody NON-REACT POLI NON-REACT POLIRelativity Media PL [place] Index 0.10 <1.00 [facility] [place] Comment: HCV antibody was non-reactive. There is no laboratory evidence of HCV infection. In most cases, no further action is required. However, if recent HCV exposure is suspected, a test for HCV RNA (test code 27815) is suggested. For additional information please refer to http://MailMeNetwork.Navidog/faq/VTF97c0 (This link is being provided for informational/ educational purposes only.) 07/15/2022 12:4 4 PM EDT 07/15/2022 12:44 PM EDT Narrative [facility] - 07/15/2022 11:27 PM EDT FASTING:YES FASTING: YES us Yoko Zhang MD LAB BLOOD ORDERABLES Final Resul t [facility] [address], [place] [address] [facility] [place] [address] [place] [address] * Image-Guided Pap with Age-Based Screening Protocols (05/24/2022 12:31 PM EST) Comment [facility] [place] Comment: This order for age-based cervical cancer and STI screening follows ACOG guidelines(PB 168, 140, THT913). See individual assays for performing site location. Clinical Information: None given [facility] LMP: 05/13/22 [employer] Prev. PAP: YES [employer] Prev. BX: YES [employer] SOURCE: None given [employer] Statement Of Adequacy: [employer] Comment: Satisfactory for evaluation. Endocervical/transformation zone component present. Interpretation/ Result: Negative for intraepithelial lesion or malignancy. [employer] COMMENT: This Pap test has been evaluated with computer assisted technology. [employer] Cytotechnologis t: [employer] Comment: RK, CT(ASCP) CT screening location: [address] ??[address] Review [employer]otechnologis t: [employer] Comment: MXD, CT (ASCP) CT screening location: [address] ??[address] (Always Message) [employer] Comment: EXPLANATORY NOTE: The Pap is a screening test for cervical cancer. It is not a diagnostic test and is subject to false negative and false positive results. It is most reliable when a satisfactory sample, regularly obtained, is submitted with relevant clinical findings and history, and when the Pap result is evaluated along with historic and current clinical information. HPV nRNA E6/E7 Not Detected Not Detected [employer] Comment: Methodology: [employer]-Mediated Amplification This assay detects E6/E7 viral messenger RNA (mRNA) from 14 high-risk HPV types (16,18,31,33,35,39,45,51,52,56,58,59,66,68). Cervical sources are required for HPV testing. If a vaginal source from a patient who has had a total hysterectomy with removal of cervix was submitted, please contact the testing laboratory for alternative testing options. For additional information, please refer to http://education.Navidog/faq/ZVZ907m8 (This link if provided for information/ educational purposes only.) Specimen from uterine cervix (specimen) 05/24/2022 12:31 PM EST 05/25/2022 8:31 AM EST Ana María ARORA LAB BLOOD ORDERABLES Diana jacqueline Result [facility] [address] [facility] [place] [address] [facility] [address] [facility], ([address]) [place] [address] from Last 3 Months or Most Recently Relevant to Health Maintenance Insurance [facility] Sub[facility] Plan / Payer (Ef fective 2022-Present) Name:Iris Garcia Relation to Subscriber:Self Name:Iris Garcia Payer ID:Not on file Type:Not on file Address: [address] [address] Care Teams Routing Clerk Relationship Specialty Start Date End Date Yoko Zhang MD [address] [place] [id number] PCP - General Family Medicine 06/21/19
--- OUTSIDE RECORDS SUMMARY | 2024-07-22 14:28 | XMS_ITS | Encounter Summary ---
Author Organization [employer] Address [address] [place] [address] 7t [place] [address] Care Team Providers Care Practical Nursing Instructor Name Role Phone Yoko Zhang MD Primary Care Provider [phone] Encounter Details Date Type Department Care Team (Late st Contact Info) Description 04/11/2022 Orders Only [facility] MEDICINE [address] [place] [address] Se Danielson, PharmD Social History Tobacco Use Types Packs/Day Years Used Date Smoking Tobacco: Never Assessed Comments Unknown Sex and Gender Information Value Date Recorded Sex Assigned at Female 01/17/2022 10:36 AM EDT Legal Sex Female 10:36 AM EDT Gender Identity Female 01/17/2022 10:36 AM EDT Sexual Orientation Choose not to disclose 2021 10:36 AM EDT COVID-19 Exposure Response Date Recorded In the last 10 days, have yo u been in contact with someone who was confirmed or suspected to have Coronavirus/COVID-19? No / Unsure 04/12/2022 9:14 AM EST documented as of this encounter Plan of Treatment Not on file documented as of this encounter Visit Diagnoses Not on filedocumented in this encounter Care Teams Practical Nursing Instructor Relationship Specialty Start Date End Date Yoko Zhang MD [address] [place] [address] PCP - General Family Medicine 06/21/19 documented as of this encounter
--- OUTSIDE RECORDS SUMMARY | 2024-07-22 14:28 | XMS_ITS | Encounter Summary ---
Author Organization [employer] Address [address] 7t [place] [address] Care Team Providers Care Door Technician Name Role Phone Yoko Zhang MD Primary Care Provider [phone] Reason for Visit * Reason Onset Date Comments Nurse Triage 03/28/2023 Encounter Details Date Type Department Care Team ([facility] st Contact Info) Description 03/28/2023 Telephone [facility] MEDICINE [address] [place] [address] Yoko Zhang MD [address] [place] [address] Nurse Triage Social History Tobacco Use Types Packs/Day Years [...] AM EDT documented as of this encounter Miscellaneous Notes * Telephone Encounter - Edy Bose - 03/28/2023 8:42 AM EST Symptoms: COVID-19 Suspected, Fever Outcome: Schedule an urgent appointment (within 4 hours) or talk to a nurse or provider soon Reason: Fever over 104 F (40 C) The caller accepted this outcome documented in this encounter Plan of Treatment Not on file documented as of this encounter Visit Diagnoses Not on filedocumented in this encounter Care Teams Door Technician Relationship Specialty Start Date End Date Yoko Zhang MD [address] [place] [id number] PCP - General Family Medicine 06/21/19 documented as of this encounter
--- OUTSIDE RECORDS SUMMARY | 2024-07-22 14:28 | XMS_ITS | Encounter Summary ---
Author Organization [employer] Address [address] [facility] 7t [place] [address] Care Team Providers Care Bottom Cager Name Role Phone Yoko Zahng MD Primary Care Provider [phone] Reason for Visit * Reason Onset Date Comments Nurse Triage 10/04/2022 Encounter Details Date Type Department Care Team ([facility] st Contact Info) Description 10/04/2022 Telephone [facility] MEDICINE [address] [place] [address] Yoko Zhang MD [address] [place] [address] Nurse Triage Social History Tobacco Use Types Packs/Day Years Used Date Smoking Tobacco: Never Smokeless Tobacco: Never Alcohol Use Standard Drinks/Week Comments Never 0 (1 standard drink = 0.6 oz pur e alcohol) Comments No Sex and Gender Information Value Date Recorded Sex Assigned at Female 01/17/2022 10:36 AM EDT Legal Sex Female 10:36 AM EDT Gender Identity Female 01/17/2022 10:36 AM EDT Sexual Orientation Choose not to disclose 2021 10:36 AM EDT documented as of this encounter Miscellaneous Notes * Telephone Encounter - America Adam RN - 10/04/2022 4:07 PM EDT Triage call Pt reports possible BV symptoms. Pt reports for 1-2 weeks has had some cottage cheese like vag drainage, irritation and itchiness. Pt reports has an allergy to own secretions . Pt also reports had HPV but, cleared . Pt now reports contact with possible HPV+ person. Pt is requesting to be tested for HPV . Pt requests to see TANVI Jo since provider is aware of Pt allergies. Apt 10/[address] @ [address] [place] [address]. Insurance is verified as active prior to booking. Protocol Used: Vaginal Symptoms (Adult) Protocol-Based Disposition: See in Office or Video Visit within 2 Weeks Positive Triage Question: * All other vaginal symptoms (Exception: Feels like prior yeast infection, minor abrasion, mild rash < 24 hour duration, mild itching.) * All higher-acuity triage questions were negative Care Advice Discussed: * Reasons To Call Back - Discharge becomes yellow or green - Discharge smells bad - Fever or abdomen pain occur - You become worse. * Telephone Encounter - Lashae Garcia - 10/04/2022 3:50 PM EDT Symptom: Vaginal Symptoms - Not Bleeding Outcome: Schedule an urgent appointment (within 4 hours) or talk to a nurse or provider soon Reason: Foul-smelling vaginal discharge The caller accepted this outcome PCP DR. Zhang documented in this encounter Plan of Treatment Not on file documented as of this encounter Visit Diagnoses Not on filedocumented in this encounter Care Teams Bottom Cager Relationship Specialty Start Date End Date Yoko Zhang MD [address] [place] [id number] PCP - General Family Medicine 06/21/19 documented as of this encounter
--- OUTSIDE RECORDS SUMMARY | 2024-07-22 14:28 | XMS_ITS | Encounter Summary ---
Author Organization [email or web address] Address [address] [facility] 7t [place] [address] Care Team Providers Care Marbleizing Machine Tender Name Role Phone Yoko Zhang MD Primary Care Provider [phone] Encounter Details Date Type Department Care Team (Late st Contact Info) Description 04/05/[address] [facility] MEDICINE [address] [place] [address] Yoko Zhang MD [address] [place] [address] Social History Tobacco Use Types Packs/Day Years [...] on filedocumented in this encounter Care Teams Marbleizing Machine Tender Relationship Specialty Start Date End Date Yoko Zhang MD [address] [place] [address] PCP - General Family Medicine 06/21/19 documented as of this encounter
--- OUTSIDE RECORDS SUMMARY | 2024-07-22 14:28 | XMS_ITS | Encounter Summary ---
Author Organization [employer] Address [address] [facility] 7t [place] [address] Care Team Providers Care Pan Washer Hand Name Role Phone Yoko Zhang MD Primary Care Provider [phone] Reason for Visit * Reason Onset Date Comments Call Back Request 07/13/2023 Encounter Details Date Type Department Care Team ([facility] st Contact Info) Description 07/13/2023 Telephone [facility] MEDICINE [address] [place] [address] Yoko Zhang MD [address] [place] [address] Call Back Request Social History Tobacco Use Types Packs/Day Years [...] encounter Miscellaneous Notes * Telephone Encounter - Yoko Zhang MD - 07/18/2023 12:06 PM EDT Referral placed * Telephone Encounter - Edy Bose - 07/13/2023 12:37 PM EDT Tc from patient calling to request a referral for ENT states made a appt and [facility] [place] and needs a referral in order to bill insurance documented in this encounter Plan of Treatment Not on file documented as of this encounter Visit Diagnoses Not on filedocumented in this encounter Care Teams Pan Washer Hand Relationship Specialty Start Date End Date Yoko Zhang MD [address] [place] [id number] PCP - General Family Medicine 06/21/19 documented as of this encounter
--- OUTSIDE RECORDS SUMMARY | 2024-07-22 14:28 | XMS_ITS | Encounter Summary ---
Author Organization [employer] Address [address] [facility] 7[address] [place] [address] Care Team Providers Care Clinical Trials Assistant Name Role Phone Yoko Zhang MD Primary Care Provider [phone] Encounter Details Date Type Department Care Team ([facility] st Contact Info) Description 05/05/2024 Orders Only [facility] MED & PEDS [address] [place], [place] [id number] Nae Villareal MD [address] [place] [address] Social History Tobacco Use Types Packs/Day Years Used Date Smoking Tobacco: Never Passive Smoke Exposure: Never Smokeless Tobacco: Never Alcohol Use Standard [...] on filedocumented in this encounter Care Teams Clinical Trials Assistant Relationship Specialty Start Date End Date Yoko Zhang MD [address] [place] [id number] PCP - General Family Medicine 06/21/19 documented as of this encounter
--- OUTSIDE RECORDS SUMMARY | 2024-07-22 14:28 | XMS_ITS | Patient Health Record ---
Author Organization [facility] Address [address] [facility] [address] [place] [address] Care Team Providers Care Material Carrier Name Role Phone Cass Bergman Unavailable [phone] Allergies Allergen (clinical drug ingredient) Drug/Non Drug Allergy documented on EMR Reaction Allergy Type Onset Date Status Soybean Unknown Drug Allergy Active Reason For Referral No Information Medications Medication SIG (Take, Route, Frequency, Duration) Notes Start Date End Date Status Loryna 3-0.02 MG 1 tablet Orally one active tablet daily. Skip inactive tablets for 86 days 09/03/2014 Active Terconazole 0.8 % 1 applicatorful at bedtime Vaginal Once a day for 3 day(s) 12/16/2019 Not-Taking Gabapentin 100 MG 1 capsule Orally Onc e a day Active Fluconazole 150 MG 1 tablet Orally q3d for 9 days 06/10/2020 Active Lotrisone 1-0.05% 1 application to affected area externally bid for 10 days 02/08/2019 Not-Taking Betamethasone Dipropionate 0.05 % 1 application Externally Twice a day 12/16/2019 Not-Taking Social History Alcohol Screen (Audit-C) Question Answer Notes Did you have a drink containing alcohol in the p ast year? No Points 0 Interpretation Negative Tobacco use other than smoking: Question Answer Notes Are you an other tobacco user? 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 SEXUAL ACTIVITY: not 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 active CONTRACEPTION: none MARITAL STATUS: 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 SEXUAL ACTIVITY: not 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 active CONTRACEPTION: none MARITAL STATUS: 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 SEXUAL ACTIVITY: not 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 active CONTRACEPTION: none MARITAL STATUS: 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 SEXUAL ACTIVITY: not 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 active CONTRACEPTION: none MARITAL STATUS: 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 SEXUAL ACTIVITY: not 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 active CONTRACEPTION: none MARITAL STATUS: 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 SEXUAL ACTIVITY: not 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 active CONTRACEPTION: none MARITAL STATUS: 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 SEXUAL ACTIVITY: not sexually active CONTRACEPTION: none Problems Problem Type SNOMED Code ICD Code Onset Dates Problem Status W/U Status Risk Notes Problem Depressive disorder (02721495) Depressive disorder, not elsewhere classified (311) Active confirmed Problem Labyrinthitis (39906842) Unspecified labyrinthitis (386.30) Active confirmed Problem Psoriasis, unspecified (L40.9) Active confirmed Problem Premenstrual dysphoric disorder (730155) Premenstrual dysphoric disorder (F32.81) Active confirmed Problem 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 B SURF. AG 06/10/2020 HSV 2 IGG AB 12/25/2018 THIN PREP,HPV IF ASCUS, CT/GC (21-29YR) 06/10/2020 URINE CULTURE 12/25/2018 TEST, (IN HOUSE) 09/03/2014 SYPHILIS TESTING 06/10/2020 HIV AB-AG 4TH GENERATION 06/10/2020 Insurance Providers Payer Name Payer Address Payer Phone Subscriber Number Group Number Insured Name Patient Relationship to Insured Coverage Start Date Coverage End Date [facility] [address] [address] [place] [address] [id number] ISAMAR PARHAM Self - patient is the insured Medical (General) History Medical History History ICD Code PMDD Dysmenorrhea labyrinthtis depression Tricia-Danlos syndrome, unspecified Q79. 60 Surgical History Surgery Date(Month/Year)
== END 2024-07-22 13:31 | disposition home or self-care (01) ==
LOC: HO.HSMS 13:08
PROVIDERS: PCP Student in an Organized Health Care Education/Training Program; Visit Provider Psychiatry & Neurology Neurology
DX: G43.119 Migraine with aura, intractable, without status migrainosus (principal); G43.909 Migraine, unspecified, not intractable, without status migrainosus; I77.74 Dissection of vertebral artery; M26.609 Unspecified temporomandibular joint disorder, unspecified side
CPT/HCPCS: 99214; G2211

== ENCOUNTER → 2024-07-22 13:07 | Outpatient (BNVA) | payer OTHER, SELFPAY | PROVIDERS: PCP Student in an Organized Health Care Education/Training Program; Visit Provider Psychiatry & Neurology Neurology | DX: G43.119 Migraine with aura, intractable, without status migrainosus (principal); I77.74 Dissection of vertebral artery; M26.609 Unspecified temporomandibular joint disorder, unspecified side | CPT/HCPCS: 99212 ==

== ENCOUNTER 2024-12-02 11:15 | Outpatient (AMB) | payer OTHER, SELFPAY ==
--- NOTE | 2024-12-02 11:15 | MHC.OFFVIS ---
Vital Signs 12/02/24 11:16 Height 5 ft 11 in Weight 221 lb 2 oz BMI 30.8 BP 118/82 Blood Pressure Location Rt brachial Position Sitting Pulse 109 H Pulse Source Pulse Oximeter Pulse Oximetry (%) 100 Oxygen Delivery Method Room Air Intake Visit Reasons: 4 mnts f/u appt Intake Note: Follow up Dissection of vertebral artery and migraine Headache Leg Breaker Required: No Accompanied by: Self / Same As Patient Allergies soy Allergy (Verified 12/02/24 11:16) throat swelling tree and shrub pollen Allergy (Verified 12/02/24 11:16) Fatigued IVP Allergy (Intermediate, Uncoded 07/22/24 13:14) Headache Medication List - Last Reconciled 12/02/24 by María Esteban MD aspirin 81 mg PO DAILY ferrous sulfate ER 137 mg PO DAILY magnesium oxide 400 mg PO BEDTIME ondansetron 4 mg PO Q8H PRN riboflavin (vitamin B2) 400 mg PO QAM HPI Comments Details: 34y/o right handed female with h/o Tricia Danlos - hypermobile type, 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 she can work through it most of the time.Nausea makes her more sick . she reports visual aura( kaliedoscope ) with dizziness, tingling followed by migraine started in Feb 2024- she has 1 episode every 2 mths . The aura lasts 2 hrs - these migraines lasts for 2-3 days she also has migraines without aura during periods .It lasts 1-2 days , she tries to sleeps it off, and takes gabapentin.she does not take gabapentin regularly .she is wearing invisalign. she still has episodes of jaw clenching. Initial visit history: About 1 year ago she had severe left shoulder pain, neck pain - found to have vertebral artery dissection, had vertebral artery stent done.she was seen by neurosurgery 6 mths after the procedure and was told that the stent was stable. she reports long h/o migraines Initially the pain was in her TMJ and ears and then transforms to unilateral eye pain and temperoparietal headache, pressure or pounding - she saw ENT and was told it was migraines as she also had nausea vomiting photophobia phonophobia, tunnel vision, dizziness etc.They lasted few days and had multiple ER visits.she had 2-3 migraines lasting 3-4 days a episode. Since her vertebral artery stent , the migraines have changed. Now she feels the headaches start in her neck and radiates to eye temporal region and ears with nausea, vomiting, photophobia phonophobia . It can last 1-2 days. It is less frequent now- 1 a month. she takes tylenol as needed or tries to sleep it off.she was tried on butalbital , gabapentin 100mg may help. Her menstrual periods are regular. she has bruxism and invisalign has helped a little. she reports some gasping arousals when she is congested. 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 Reproductive History Menstrual Age of Menarche: 13 Physical Exam Vital Signs: Last Vital Signs Pulse 109 H 12/02/24 11:16 BP 118/82 12/02/24 11:16 Pulse Ox 100 12/02/24 11:16 Oxygen Delivery Method Room Air 12/02/24 11:16 BMI result Body Mass Index 30.8 Const Orientation/consciousness: patient oriented x3 Eyes Pupils: Equal, round and reactive pupils present Neck Neck: Yes no meningeal signs Neuro Other: mallampatti grade 4 Gustavo tightness of TMJ General: patient oriented x3, gait normal, tone normal, moves all extremities, Normal light touch and pain sensation, no meningeal signs and no focal motor deficits Cranial nerves: Yes Facial sensation intact/muscles of mastication intact, Yes Equal, round and reactive pupils present, Yes Bilaterally intact EOM present, Yes Nystagmus not present, Yes Normal facial strength present, Yes Midline tongue present and Yes Symmetric palate elevation present Cognition (Neuro): normal cognition Gait exam (Neuro): Normal gait present Coordination: [id number] test normal Assessment & Plan Assessment & Plan (1) Migraine with aura, intractable, without status migrainosus: Code(s): G43.119 - Migraine with aura, intractable, without status migrainosus Category: Medical (2) Migraine headache: Code(s): G43.909 - Migraine, unspecified, not intractable, without status migrainosus Category: Medical Qualifiers: Intractability: not intractable Migraine type: unspecified Status migrainosus presence: without status migrainosus Qualified Code(s): G43.909 - Migraine, unspecified, not intractable, without status migrainosus (3) Vertebral artery dissection: Code(s): I77.74 - Dissection of vertebral artery (4) TMJ (temporomandibular joint disorder): Code(s): M26.609 - Unspecified temporomandibular joint disorder, unspecified side Category: Medical Plan zofran 4 mg as needed for nausea H/o left vertebral artery dissection with a stent - f/u neurosurgery at [facility] Restart magnesium 400mgq hs Vit B 2 400mg qam F/u dentist will consider PT DO NOT USE TRIPTANS due to h/o vertebral artery dissection Medications: New riboflavin (vitamin B2) 400 mg PO QAM 30 tabs 6RF magnesium oxide 400 mg PO BEDTIME 30 tabs 6RF Discontinued gabapentin Discontinued Reason: Patient no longer taking 300 mg PO BEDTIME 30 caps 6RF Coding Level of Care Code Est Pt Level 4 (01237) Complex EM visit Add On G2211 Diagnoses Migraine with aura, intractable, without status migrainosus G43.119 Migraine without status migrainosus, not intractable, unspecified migraine type G43.909 Intractability: not intractable Migraine type: unspecified Status migrainosus presence: without status migrainosus Vertebral artery dissection I77.74 TMJ (temporomandibular joint disorder) M26.609
[2024-12-02 11:16] VITALS: BP 118/82; PULSE 109; O2SAT 100; BMI 30.8
--- OUTSIDE RECORDS SUMMARY | 2024-12-02 15:11 | XMS_ITS | Patient Health Record ---
Author Organization [facility] Address [address] [facility] [address] [place] [address] Care Team Providers Care Meteorological Engineer Name Role Phone Cass Bergman Unavailable [phone] Allergies Allergen (clinical drug ingredient) Drug/Non Drug Allergy documented on EMR Reaction Allergy Type Onset Date Status Soybean Unknown Drug Allergy Active Reason For Referral No Information Medications Medication SIG (Take, Route, Frequency, Duration) Notes Start Date End Date Status Loryna 3-0.02 MG 1 tablet Orally one active tablet daily. Skip inactive tablets; Duration: 86 days 09/03/2014 Active Terconazole 0.8 % 1 applicatorful at bedtime Vaginal Once a day; Duration: 3 day(s) 12/16/2019 Not-Taki ng Gabapentin 100 MG 1 capsule Orally Onc e a day Active Fluconazole 150 MG 1 tablet Orally q3d; Duration: 9 days 06/10/2020 Active Lotrisone 1-0.05% 1 application to affected area externally bid; Duration: 10 days 02/08/2019 Not-Takin g Betamethasone Dipropionate 0.05 % 1 application Externally Twice a day 12/16/2019 Not-Taking Social History Alcohol Screen (Audit-C) Question Answer Notes Did you have a drink containing alcohol in the p ast year? No Points 0 Interpretation Negative Tobacco use other than smoking: Question Answer Notes Are you an other tobacco user? 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 SEXUAL ACTIVITY: not sexually active CONTRACEPTION: none MARITAL STATUS: single 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 SEXUAL ACTIVITY: not sexually active CONTRACEPTION: none MARITAL STATUS: single 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 SEXUAL ACTIVITY: not sexually active CONTRACEPTION: none MARITAL STATUS: single 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 SEXUAL ACTIVITY: not sexually active CONTRACEPTION: none MARITAL STATUS: single 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 SEXUAL ACTIVITY: not sexually active CONTRACEPTION: none MARITAL STATUS: single 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 SEXUAL ACTIVITY: not sexually active CONTRACEPTION: none MARITAL STATUS: single 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 SEXUAL ACTIVITY: not sexually active CONTRACEPTION: none MARITAL STATUS: single 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 SEXUAL ACTIVITY: not sexually active CONTRACEPTION: none Problems Problem Type SNOMED Code ICD Code Onset Dates Problem Status W/U Status Risk Notes Problem Depressive disorder (68691883) Depressive disorder, not elsewhere classified (311) Active confirmed Problem Labyrinthitis (48104382) Unspecified labyrinthitis (386.30) Active confirmed Problem Psoriasis (7088920) Psoriasis, unspecified (L40.9) Active confirmed Problem Premenstrual dysphoric disorder (840332) Premenstrual dysphoric disorder (F32.81) Active confirmed Problem Tricia-Danlos syndrome (disorder) (150687365) Tricia-Danlos syndrome, 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 60 Surgical History Surgery Date(Month/Year)
--- OUTSIDE RECORDS SUMMARY | 2024-12-02 15:11 | XMS_ITS | Encounter Summary ---
Author Organization [employer] Address [address] [place] [address] 7 [place] [address] Care Team Providers Care Auto Clocks Repairer Name Role Phone Cora Harper CNP Primary Care Provider [phone] Reason for Visit * Reason Onset Date Comments Appointment Request 11/27/2024 Encounter Details Date Type Department Care Team ([facility] st Contact Info) Description 11/27/[address] [facility] MEDICINE [address] [place], [place] [phone] Cora Harper CNP [address] [place] [address] Appointment Request Social History Tobacco Use Types Packs/Day [...] encounter Miscellaneous Notes * Telephone Encounter - Soledad Gutierrez RN - 11/27/2024 11:04 AM EDT Telephone call placed to pt to clarify below message. No answer, left v/m. Will also send [employer] message. If pt returns call please clarify if this is in regards to the recurrent burning flaking skin on her vulva and that she is requesting a referral to an OBGYN. Did she every see dermatology for this? Thank you! * Telephone Encounter - Adrian Moreno - 11/27/2024 10:53 AM EDT Tc from pt requesting to appt with Setter Helper stating she is aware of symptoms but is unsure what it could be, would like a OV to verify. Please contact pt at [phone]. documented in this encounter Plan of Treatment Not on file documented as of this encounter Visit Diagnoses Not on filedocumented in this encounter Care Teams Auto Clocks Repairer Relationship Specialty Start Date End Date Cora Harper CNP [address] [place] [address] PCP - General Family Medicine 10/30/24 documented as of this encounter
--- OUTSIDE RECORDS SUMMARY | 2024-12-02 15:11 | XMS_ITS | Clinical Summary ---
Author Organization [employer] Address [address] [place] [address] 7t [place] [address] Care Team Providers Care Fitter / Welder Name Role Phone Glen Harpernatalieflo MAYA Primary Care Provider [phone] Allergies Active Allergy Reactions Criticality Noted Date [...] affected area only. 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 Encounters Date Type Department Care Team Description 11/27/2024 Telephone [facility] MEDICINE [address] [place] [address] Cora Harper CNP Appointment Request 11/27/2024 Telephone [facility] MEDICINE [address] [place] [address] Cora Harper CNP Appointment Request from Last 3 Months Immunizations Immunization Administration Dates Next Due HPV 9-Valent 07/29/2022,06/17/2022 Pfizer Covid-19 Vaccine 12+ 08/06/2020, 1 Tdap 06/17/2022 Social History Tobacco Use Types [...] the past 12 months, has t he [employer], gas, oil or water company threatened to [...] 106 06/18/2024 2:40 PM EDT Temperature 36.2 C (97.2 F) 06/18/2024 2:40 PM EDT Respiratory Rate 20 06/18/2024 2:40 PM EDT Oxygen Saturation 98% 06/18/2024 2:40 PM EDT Inhaled Oxygen Concentration - - Weight 88.2 kg (194 lb 6.4 oz) 05/07/2024 9:57 A M EST Height 179 cm (5' 10.47 ) 05/07/2024 9:57 AM EST Body Mass Index 27.52 05/07/2024 9:57 AM EST Plan of Treatment Health Maintenance Due Date Last Done Comments Depression Screening 1991 Disability Screening 1991 Alcohol/Substance Use Screening 2003 Hepatitis B Vaccines (1 of 3 - 19+ 3-dose series) 06/07/2010 HPV Vaccines (3 - 3-dose series) 12/17/2022 07/29/2022, 06/17/2022 SDOH Screening 04/26/2023 04/26/2022 Influenza Vaccine (#1) 2024 Family Planning (PISQ) 02/04/2025 02/05/2024 Tobacco Screening 05/07/2025 05/07/2024 Cervical Cancer Screening 05/24/2025 HPV/Cotest 05/24/2025 05/24/2022, 02/02/2021 Pap Smear 05/24/2025 05/24/2022, 02/02/2021, 02/02/2021 DTaP/Tdap/Td Vaccines (2 - T d [...] patient's age to complete this topic Meningococcal B Vaccine Aged Out No l onger eligible based on patient's age to complete this topic Meningococcal Vaccine Aged Out No dave peyman eligible based on patient's age to complete this topic Pneumococcal Vaccine: Pediatrics (0 to 5 Years) and At-Risk Patients (6 to 49) Years Aged Out No longer eligible b ased [...] 3:09 PM EST) HIV AB/AG Nonreactive Nonreactive [facility] Comment:HIV-1 p24 Ag and/or HIV-1/HIV-2 Ab not detected.A test result that is nonreactive does not exclude thepossibility of exposure to or infection with HIV-1 and/orHIV-2. Nonreactive results in this assay for individualswith prior exposure to HIV-1 and/or HIV-2 may be due toantigen and antibody levels that are below the limit ofdetection of this assay.The emoquo HIV Ag/Ab Combo assay result andsupplemental assay results should be interpreted inconjunction with the patient's clinical presentation,history and other laboratory results. If the results areinconsistent with clinical evidence, additional testing issuggested to confirm the result. Blood Venous blood specimen / Unknown 05/23/2023 3:09 PM EST 05/23/2023 5:30 PM EST us Ana María Jo [facility] LAB BLOOD ORDERABLES Diana phillips Result [facility] [address] [place] [phone] * (ABNORMAL) Hepatitis Panel, General (07/15/2022 12:44 PM EDT) Pathologist [facility] Hepatitis A Antibody Total REACTIVE( A) NON-REACT [employer] [place] [facility] Comment: For additional information, please refer to http://education.CicerOOs.CapLinked/faq/JPN148 (This link is being provided for informational/ educational purposes only.) Hepatitis B Surface Antibody QL REACTIVE( A) NON-REACT [employer] [place] [facility] Hepatitis B Surface Ag NON-REACT POLI NON-REACT [employer] [place] [facility] Hepatitis B Core Antibody Total NON-REACT POLI NON-REACT POLI [facility] 2d2ct Hepatitis C Antibody NON-REACT POLI NON-REACT POLI [facility] Index 0.10 <1.00 [facility] Comment: HCV antibody was non-reactive. There is no laboratory evidence of HCV infection. In most cases, no further action is required. However, if recent HCV exposure is suspected, a test for HCV RNA (test code 06289) is suggested. For additional information please refer to http://education.Lightwaves/faq/AZT04n3 (This link is being provided for informational/ educational purposes only.) 07/15/2022 12:4 4 PM EDT 07/15/2022 12:44 PM EDT Narrative [facility] - 07/15/2022 11:27 PM EDT FASTING:YES FASTING: YES us Yoko Zhang MD LAB BLOOD ORDERABLES Final Resul t [facility] [address], [place] [address] [employer] [place] [facility] [address] [place] [address] * Image-Guided Pap with Age-Based Screening Protocols (05/24/2022 12:31 PM EST) Comment [facility] Comment: This order for age-based cervical cancer and STI screening follows ACOG guidelines(PB 168, 140, VLA133). See individual assays for performing site location. Clinical Information: None given [facility] LMP: 05/13/22 [facility] Prev. PAP: YES [facility] Prev. BX: YES [facility] SOURCE: None given [facility] Statement Of Adequacy: [facility] Comment: Satisfactory for evaluation. Endocervical/transformation zone component present. Interpretation/ Result: Negative for intraepithelial lesion or malignancy. [facility] COMMENT: This Pap test has been evaluated with computer assisted technology. [facility] Cytotechnologis t: [facility] Comment: RK, CT(ASCP) CT screening location: [address] [address] Review [employer]olog[employer] t: [facility] [place] [facility] Comment: MXD, CT (ASCP) CT screening location: [address] [address] (Always Message) [facility] Comment: EXPLANATORY NOTE: The Pap is a [...] HPV nRNA E6/E7 Not Detected Not Detected [facility] Comment: Methodology: Community Health Nurse-Mediated Amplification This assay detects E6/E7 viral messenger RNA (mRNA) from 14 high-risk HPV types (16,18,31,33,35,39,45,51,52,56,58,59,66,68). Cervical sources are required for HPV testing. If a vaginal source from a patient who has had a total hysterectomy with removal of cervix was submitted, please contact the testing laboratory for alternative testing options. For additional information, please refer to http://education.Lightwaves/faq/AMY682v1 (This link if provided for information/ educational purposes only.) Specimen from uterine cervix (specimen) 05/24/2022 12:31 PM EST 05/25/2022 8:31 AM EST Ana María Jo [facility] LAB BLOOD ORDERABLES Diana hpillips Result [address], [facility], [place] [address] [facility] [place] [facility] [address] [facility], ([address]) [place] [address] from Last 3 Months or Most Recently Relevant to Health Maintenance Insurance [facility] Care Teams Fitter / Welder Relationship Specialty Start Date End Date Cora Harper CNP [address] [place] [phone] PCP - General Family Medicine 10/30/24
--- OUTSIDE RECORDS SUMMARY | 2024-12-02 15:11 | XMS_ITS | Encounter Summary ---
Author Organization [employer] Address [address] [place] [address] 7 [place] [address] Care Team Providers Care Slaughterer Religious Ritual Name Role Phone Yoko Zhang MD Primary Care Provider [phone] Cora Harper CNP Primary Care Provider [phone] Encounter Details Date Type Department Care Team (Late st Contact Info) Description 04/05/2022 Abstract [facility] MEDICINE 230 [place], [place] [phone] Yoko Zhang MD [address] [place] [address] Social History Tobacco Use Types Packs/Day Years [...] on filedocumented in this encounter Care Teams Slaughterer Religious Ritual Relationship Specialty Start Date End Date Yoko hZang MD 230 [place], [place] [phone] PCP - General Family Medicine 06/21/19 10/29/24 Cora Harper CNP 230 [place] [address] PCP - General Family Medicine 10/30/24 documented as of this encounter
--- OUTSIDE RECORDS SUMMARY | 2024-12-02 15:11 | XMS_ITS | Encounter Summary ---
Author Organization [employer] Address [address] [facility] 7t [place] [address] Care Team Providers Care Line Installation Supervisor Name Role Phone Yoko Zhang MD Primary Care Provider [phone] Cora Harper CNP Primary Care Provider [phone] Reason for Visit * Reason Onset Date Comments Nurse Triage 03/28/2023 Encounter Details Date Type Department Care Team ([facility] st Contact Info) Description 03/28/2023 Telephone [facility] MEDICINE 230 [place] [address] Yoko Zhang MD [address] [place] [address] Nurse Triage Social History Tobacco Use Types Packs/Day Years Used Date Smoking Tobacco: Never Smokeless Tobacco: Never Alcohol Use Standard Drinks/Week Comments Never 0 (1 standard drink = 0.6 oz pur e alcohol) Housing Stability Answer Date Recorded What is your housing situation today? I have alvarobessy tomlinson 01/02/[address] you [...] on filedocumented in this encounter Care Teams Line Installation Supervisor Relationship Specialty Start Date End Date Yoko Zhang MD [address] [place] [address] PCP - General Family Medicine 06/21/19 10/29/24 Cora Harper CNP 230 [place] [address] PCP - General Family Medicine 10/30/24 documented as of this encounter
--- OUTSIDE RECORDS SUMMARY | 2024-12-02 15:11 | XMS_ITS | Encounter Summary ---
Author Organization [employer] Address [address] [facility] 7t [place] [address] Care Team Providers Care Ice Skater Name Role Phone Yoko Zhang MD Primary Care Provider [phone] Cora Harper CNP Primary Care Provider [phone] Encounter Details Date Type Department Care Team ([facility] st Contact Info) Description 03/17/2023 Orders Only [facility] MED & PEDS [address] [place], [place] [phone] Nae Villareal MD 505 [place] [address] Vaginal discharge (Primary Dx) Social History Tobacco [...] infective documented in this encounter Care Teams Ice Skater Relationship Specialty Start Date End Date Yoko Zhang MD 230 [place] [address] PCP - General Family Medicine 06/21/19 10/29/24 Cora Harper CNP 230 [place] [address] PCP - General Family Medicine 10/30/24 documented as of this encounter
--- OUTSIDE RECORDS SUMMARY | 2024-12-02 15:11 | XMS_ITS | Encounter Summary ---
Author Organization [employer] Address [address] [place] [address] 7 [place] [address] Care Team Providers Care Sanding Machine Tender Automatic Name Role Phone Yoko Zhang MD Primary Care Provider [phone] Cora Harper CNP Primary Care Provider [phone] Encounter Details Date Type Department Care Team (Late st Contact Info) Description 04/11/2022 Orders Only [facility] MEDICINE 230 [place], [place] [phone] Se Danielson PharmD Social History Tobacco Use Types Packs/Day [...] on filedocumented in this encounter Care Teams Sanding Machine Tender Automatic Relationship Specialty Start Date End Date Yoko Zhang MD 230 [place] [address] PCP - General Family Medicine 06/21/19 10/29/24 Cora Harper CNP [address] [place] [address] PCP - General Family Medicine 10/30/24 documented as of this encounter
--- OUTSIDE RECORDS SUMMARY | 2024-12-02 15:11 | XMS_ITS | Encounter Summary ---
Author Organization [employer] Address [address] [facility] 7t [place] [address] Care Team Providers Care Tractor Mechanic Apprentice Name Role Phone Yoko Zhang MD Primary Care Provider [phone] Cora Harper CNP Primary Care Provider [phone] Reason for Visit * Reason Onset Date Comments Call Back Request 07/13/2023 Encounter Details Date Type Department Care Team ([facility] st Contact Info) Description 07/13/2023 Telephone [facility] MEDICINE [address] [place] [address] Yoko Zhang MD [address] [place], [place] [phone] Call Back Request Social History Tobacco Use [...] seen today on 07/12with ENT at [address] [facility] in [place] and needs a referral in order to bill insurance documented in this encounter Plan of Treatment Not on file documented as of this encounter Visit Diagnoses Not on filedocumented in this encounter Care Teams Tractor Mechanic Apprentice Relationship Specialty Start Date End Date Yoko Zhang MD 230 [place] [address] PCP - General Family Medicine 06/21/19 10/29/24 Cora Harper CNP 230 [place] [address] PCP - General Family Medicine 10/30/24 documented as of this encounter
--- OUTSIDE RECORDS SUMMARY | 2024-12-02 15:11 | XMS_ITS | Encounter Summary ---
Author Organization [employer] Address [address] [facility] 7t [place] [address] Care Team Providers Care Medical Front Desk Coordinator Name Role Phone Yoko Zhang MD Primary Care Provider [phone] Cora Harper CNP Primary Care Provider [phone] Encounter Details Date Type Department Care Team (Late st Contact Info) Description 05/05/2024 Orders Only [facility] MED & PEDS 505 [place], [place] [phone] Nae Villareal MD [address] [place] [address] Social History Tobacco Use Types Packs/Day Years [...] on filedocumented in this encounter Care Teams Medical Front Desk Coordinator Relationship Specialty Start Date End Date Yoko Zhang MD 230 [place] [address] PCP - General Family Medicine 06/21/19 10/29/24 Cora Harper CNP [address] [place] [address] PCP - General Family Medicine 10/30/24 documented as of this encounter
--- OUTSIDE RECORDS SUMMARY | 2024-12-02 15:11 | XMS_ITS | Encounter Summary ---
Author Organization [employer] Address [address] [facility] 7t [place] [address] Care Team Providers Care Domestic Laundry Worker Name Role Phone Yoko Zhang MD Primary Care Provider [phone] Cora Harper CNP Primary Care Provider [phone] Reason for Visit * Reason Onset Date Comments Nurse Triage 10/04/2022 Encounter Details Date Type Department Care Team ([facility] st Contact Info) Description 10/04/2022 Telephone [facility] MEDICINE 230 [place] [address] Yoko Zhang MD [address] [place] [address] Nurse Triage Social History Tobacco Use Types [...] aware of Pt allergies. Apt 10/[address] @ [address] [place] [address]. Insurance is verified as active prior to [...] on filedocumented in this encounter Care Teams Domestic Laundry Worker Relationship Specialty Start Date End Date Yoko Zhang MD [address] [place] [address] PCP - General Family Medicine 06/21/19 10/29/24 Cora Harper CNP [address] [place] [address] PCP - General Family Medicine 10/30/24 documented as of this encounter
--- OUTSIDE RECORDS SUMMARY | 2024-12-02 15:11 | XMS_ITS | Encounter Summary ---
Author Organization [employer] Address [address] [place] [address] 7 [place] [address] Care Team Providers Care Transportation Museum Helper Name Role Phone Cora Harper CNP Primary Care Provider [phone] Reason for Visit * Reason Onset Date Comments Appointment Request 11/27/2024 Encounter Details Date Type Department Care Team ([facility] st Contact Info) Description 11/27/2024 Telephone [facility] MEDICINE 230 [place], [place] [phone] Cora Harper CNP 230 [place] [address] Appointment Request Social History Tobacco Use Types [...] encounter Miscellaneous Notes * Telephone Encounter - Adrian Josh - 11/27/2024 10:44 AM EDT Tc from pt requesting a call back to schedule Derm visit. Pt states she was given Doxycyline for a rash in which the rash did go away but then pt was put on a steroid and rash returned. Please contact pt at [phone]. documented in this encounter Plan of Treatment Not on file documented as of this encounter Visit Diagnoses Not on filedocumented in this encounter Care Teams Transportation Museum Helper Relationship Specialty Start Date End Date Cora Harper CNP [address] [place] [address] PCP - General Family Medicine 10/30/24 documented as of this encounter
== END 2024-12-02 11:38 | disposition home or self-care (01) ==
LOC: HO.HSMS 11:15
PROVIDERS: PCP Student in an Organized Health Care Education/Training Program; Visit Provider Psychiatry & Neurology Neurology
DX: G43.119 Migraine with aura, intractable, without status migrainosus (principal); G43.909 Migraine, unspecified, not intractable, without status migrainosus; I77.74 Dissection of vertebral artery; M26.609 Unspecified temporomandibular joint disorder, unspecified side
CPT/HCPCS: 99214

== ENCOUNTER → 2024-12-02 11:15 | Outpatient (BNVA) | payer OTHER, SELFPAY | PROVIDERS: PCP Student in an Organized Health Care Education/Training Program; Visit Provider Psychiatry & Neurology Neurology | DX: G43.119 Migraine with aura, intractable, without status migrainosus (principal); I77.74 Dissection of vertebral artery; M26.609 Unspecified temporomandibular joint disorder, unspecified side; Q79.60 Ehlers-Danlos syndrome, unspecified | CPT/HCPCS: 99212 ==

== ENCOUNTER → 2025-01-14 13:21 | Outpatient (REF) | payer OTHER, SELFPAY ==
--- NOTE | 2025-01-14 13:26 | HM_ITS ---
Conclusion: 1. Patient was monitored for total period of 2 days 2. Baseline was normal sinus rhythm with average heart of 81 beats per minute 3. Rare PACs and PVCs noted 4. No significant pauses noted 5. Patient marked the counter 12 times with symptoms of fast heart rate correlating with sinus tachycardia and pounding correlated with PVCs MTDD
--- OUTSIDE RECORDS SUMMARY | 2025-01-14 17:11 | XMS_ITS | Data Portability ---
Author Organization [place] - [facility], Allergy Address [address] [address] Assessment No assessment recorded. Plan of Treatment [...] report Not Available [facility] ([facility]) [address] [facility], [place], [address], 09/12/2023 08:25:46 08/11/19 24 08/14/2023 AEROB IC BACTE RIAL CULTU RE result 1 Mixed site nhung. Heavy growt h Not Available [facility] ([facility]) [address] [facility], [place], [address], 09/12/2023 08:25:46 08/11/1909/12/2023 FUNGU S (MYCO LOGY) CULTU RE fungus (mycology) culture Final report Not Available [facility] ([facility]) [address] [facility], [place], [address], 09/12/2023 08:25:46 08/11/19 24 09/12/2023 FUNGU S (MYCO LOGY) CULTU RE result 1 COMMEN T No yeast or mold isola silviano after 4 weeks . Not Available [facility] ([facility]) [address] [facility], [place], [address], 09/12/2023 08:25:46 11/08/1901/01/2020 imagi ng/di agnos tic resul t No observ ation record ed. [email or web address] Not Available 06:00:11 Result Notes None recorded. 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, postural; Note: Date Diagnosed : 07/22/2019 2:25 PM (I95.1) Not Available [facility] 4 02:23:25 Impacted cerumen of bilateral ears 42037287174 78484 Active 2019 Impacted cerumen, bilateral ; Note: Date Diagnosed : 07/22/2019 2:25 PM (H61.23) Not Available [facility] 4 02:23:54 Abnormal auditory perceptio n 36917067 Active 2019 Other abnormal auditory perceptio ns, bilateral ; Note: Date Diagnosed : 07/22/2019 2:25 PM (H93.293) Not Available [facility] 4 02:23:31 Chronic tonsillit is 26333806 Active 2019 Chronic tonsillit is; Note: Date Diagnosed : 12/03/2019 10:49 AM (J35.01) Not Available [facility] 4 02:23:17 Bilateral temporoma ndibular joint pain 63824697184 024529 Active 2019 Arthralgi a of bilateral temporoma ndibular joint; Note: Date Diagnosed : 12/03/2019 10:49 AM (M26.623) Not Available [facility] 4 02:23:26 Migraine without aura, not refractor y 256700062 Active 2019 Migraine without aura, not intractab le, without status migrainos us; Note: Date Diagnosed : 0 5:18 PM (G43.009) Not Available [facility] 4 02:23:36 Dizziness and giddiness 630334468 Active 2019 Dizziness and giddiness ; Note: Date Diagnosed : 0 5:18 PM (R42) Not Available [facility] 4 02:23:18 Cardiac arrhythmi a 092879568 Active 2019 Other specified cardiac arrhythmi as; Note: Date Diagnosed : 0 5:17 PM (I49.8) Not Available [facility] 4 02:23:16 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, unspecifi ed; Note: Changed from Q79.6 to Q79.60 ( 2 5:30 PM) , Date Diagnosed : 0 5:17 PM (Q79.6) Not Available [facility] 4 02:23:43 Disorder of nasal sinus 8579901 Active 2021 Other specified disorders of nose and nasal sinuses; Note: Date Diagnosed : 06/28/2021 4:18 PM (J34.89) Not Available [facility] 4 02:23:16 Disorder of the nose 37115425 Active 2021 Other specified disorders of nose and nasal sinuses; Note: Date Diagnosed : 06/28/2021 4:18 PM (J34.89) Not Available [facility] 4 02:23:16 Deviated nasal septum 551258675 Active 2021 Deviated nasal septum; Note: Date Diagnosed : 06/28/2021 4:17 PM (J34.2) Not Available [facility] 4 02:23:40 Cystic fibrosis 063168046 Active 2021 Cystic fibrosis NOS-Other and unspecifi ed disorders of metabolis m:; Note: Date Diagnosed : 06/28/2021 4:17 PM (277.00) Not Available [facility] 4 02:23:34 Recurrent acute streptoco ccal tonsillit is 61627987626 824622 Active 2023 Acute recurrent streptoco ccal tonsillit is; Note: Date Diagnosed : 07/20/2023 4:57 PM (J03.01) Not Available [facility] 4 02:23:25 Chronic rhinitis 41967438 Active 2023 Chronic rhinitis; Note: Date Diagnosed : 07/20/2023 4:58 PM (J31.0) Not Available [facility] 4 02:23:51 Chronic disease of tonsils AND/OR adenoids 59569642 Active 2023 Calculus, tonsil; Note: Date Diagnosed : 07/20/2023 4:57 PM (J35.8) Not Available [facility] 4 02:23:54 Candidias is of mouth 23352465 Active [address] [facility] 16:08:40 Breath smells unpleasan t 54353810 Active [address] [facility] 4 16:09:11 Amygdalol ith 3499486 Active [address] cam[address] [facility] 13:31:35 Problem Notes None recorded. Medical Equipment None Reported. Allergies Allergen ID Allergen Name Allergen Category Reaction Reaction Severity Criticality Documentation Date Start Date Code Code System Note Provider Name and Address Organization Details Recorded Time 583693 blue dye medicatio n Not available Not available Not available 08/11/2023 KENROY Ontiveros [facility] 4 15:48:34 70951 tree and shrub pollen environme nt,medica tion other Not available Not available 08/01/2023 React ion: unkno wn, unspe cifie d;; Not Available [facility] 4 00:53:54 65272 Glycine max (substanc e) environme nt,food,m edication other Not available Not available 08/01/2023 33914 5007 SNOMED React ion: unkno wn, unspe cifie d;; Not Available [facility] 4 00:54:01 Medications Name Sig Start Date Stop Date Status Note LastModified by Organization Details LastModified Time nystatin 100,000 unit/mL oral suspensio n Take 5 ml by mouth four times a day 2023 active Medicatio n ID: [id number] Du ration Value: 21 Brand Name: nystatin Send Method: E-Prescri bed Subs Allowed: subs OK Medica tionGener icName: nystatin Not Available Not Available Not Available amoxicill in 875 mg tablet 01/28 completed Medicatio n ID: [id number] Du ration Value: 10 Brand Name: amoxicill [...] active Not Available Not Available Not Available Zroaida (28) 3 mg-0.02 mg tablet 2019 active Medicatio n ID: [id number] Du ration Value: 90 Brand Name: Zoraida (28) Send Method: E-Prescri bed Subs Allowed: subs OK Specia l Instructi on: TAKE 1 TABLET ONCE A DAY, SKIP INACTIVE TABLETS M edication GenericNa me: Zoraida (28) Not Available Not Available Not Available Vitals Date Recorded Body height Body mass index (BMI) Body weight Provider Name and Address Organization Details Last Updated DateTime 08/11/2023 180.34 cm 27.1 kg/m2 46677.92 g Real Barcenas [place] - [facility] 08/11/2023 15:48:19 Social History None recorded. Functional Status Question Answer Note LastModified by Organizat ion Details LastModified Time Do you use any illicit or recreational drugs? No [email or web address] Information not available 08/11/2023 Do you or have you ever used any other forms of tobacco or nicotine? No [email or web address] Information not available 08/11/2023 What is your level of alcohol consumption? None [email or web address] Information not available 08/11/2023 Mental Status None recorded. Family History Nothing Reported. Medical History No medical history recorded. Gynecological HistoryNo gynecological history recorded. Obstetrics History GPAL:G 0 P 0 0 0 0 Past Encounters Encounter ID Performer Location Encounter Start Date Encounter Closed Date Diagnosis/Indication Diagnosis SNOMED-CT Code Diagnosis ICD10 Code Diagnosis IMO Codes Diagnosis Note [id number] LISA MOROCHO PA-C [facility] [address] [address] 08/11/2023 15:37:14 08/11/2023 16:17:35 Breath smells unpleasant 55998505 R19.6 Amygdalolith 1723945 J35 .8 Health Concerns Section Related Observation LastModified by Organization Detai ls LastModified Time None Recorded Concern Status LastModified by Organization Details LastModified Time None Recorded Advance Directives Directive None Recorded Payers Insurance Date Sequence Insurance Name Policy Number Policy Montoya Covered Member ID Montoya Member ID Guarantor Name 08/26/2024 1 [facility] [id number] Iris Garcia [id number] Iris Garcia 08/26/2024 1 [facility] (MEDICAID HMO) [id number] Iris Garcia [id number] Iris Garcia Notes Date Note Type Note Provider Name and Address Organization Details Recorded Time 08/11/2023 text/html ROS as noted in the HPI 33 year old female presents for evaluation of the oral cavity. Had a hard time keeping up with the nystatin so she discontinued it. Has not been scraping the tongue. No mouthwash. Has some dental caries that need attention. RANULFO RODRIGUEZ MD [address] [place] [address], [phone], [facility] - [facility] 08/16/2023 16:47:27 OBGyn Episode No OBEpisode recorded.
--- OUTSIDE RECORDS SUMMARY | 2025-01-14 17:11 | XMS_ITS | Patient Health Record ---
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 SEXUAL ACTIVITY: not sexually active CONTRACEPTION: none .CE: Smoking: Never a smoker .CE: ALCOHOL: none ILLICIT DRUGS: no MARITAL STATUS: single 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 SEXUAL ACTIVITY: not sexually active CONTRACEPTION: none MARITAL STATUS: single 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 SEXUAL ACTIVITY: not sexually active CONTRACEPTION: none MARITAL STATUS: single 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 SEXUAL ACTIVITY: not sexually active CONTRACEPTION: none MARITAL STATUS: single 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 SEXUAL ACTIVITY: not 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 active CONTRACEPTION: none MARITAL STATUS: single 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 SEXUAL ACTIVITY: not sexually active CONTRACEPTION: none MARITAL STATUS: single 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 SEXUAL ACTIVITY: not sexually active CONTRACEPTION: none MARITAL STATUS: single 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 SEXUAL ACTIVITY: not sexually active CONTRACEPTION: none MARITAL STATUS: single 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 SEXUAL ACTIVITY: not sexually active CONTRACEPTION: none Problems Problem Type SNOMED Code ICD Code Onset Dates Problem Status W/U Status Risk Notes Problem Depressive disorder (94189492) Depressive disorder, not elsewhere classified (311) Active confirmed Problem Labyrinthitis (00926149) Unspecified labyrinthitis (386.30) Active confirmed Problem Psoriasis (9105495) Psoriasis, unspecified (L40.9) Active confirmed Problem Premenstrual dysphoric disorder (863733) Premenstrual dysphoric disorder (F32.81) Active confirmed Problem 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 60 Surgical History Surgery Date(Month/Year)
== END ==
LOC: HO.CARD 13:21
DX: R00.2 Palpitations (principal); G90.A Postural orthostatic tachycardia syndrome [POTS]
CPT/HCPCS: 93225

== ENCOUNTER → 2025-01-14 13:26 | Outpatient (BNV) | payer OTHER, SELFPAY | PROVIDERS: Visit Provider Internal Medicine Cardiovascular Disease | DX: I49.1 Atrial premature depolarization (principal); I49.3 Ventricular premature depolarization | CPT/HCPCS: 93227 ==

== ENCOUNTER 2025-02-10 12:01 | Outpatient (REF) | payer OTHER, SELFPAY ==
--- OUTSIDE RECORDS SUMMARY | 2025-02-10 11:15 | XMS_ITS | Encounter Summary ---
Author Organization [employer] Address [address] [facility] [address] [place] [address] Care Team Providers Care Piping Drafter Name Role Phone Leroy Glendeejay TREJO Primary Care Provider [phone] Encounter Details Date Type Department Care Team ([facility] st Contact Info) Description 02/10/2025 11:15 AM EST Office Visit [facility] MED & PEDS [address] [place], [place] [phone] Hina Shay MD [address] [place], [place] [phone] Subacute vaginitis (Primary Dx) Social History Tobacco Use Types Packs/Day Years Used Date Smoking Tobacco: Never Passive Smoke Exposure: Never Smokeless Tobacco: Never Alcohol Use Standard Drinks/Week Comments Never 0 (1 standard drink = 0.6 oz pur e alcohol) Housing Stability Answer Date Recorded What is your housing situation today? I have alvaro tomlinson 12/24/[address] you li ve. Do you have problems with any of the following? None of the above 12/24/2024 Food Insecurity Answer Date Recorded Within the past 12 months, y ou worried that your food would run out before you got money to buy more: Never True 12/24/2024 Within the past 12 months,th e food you bought just didn't last and you didn't have enough money to get more: Never True 09/2024 Transportation Answer Date Recorded In the past 12 months, has l ack of transportation kept you from medical appts, meetings, work or from getting things needed for daily living? No 12/24/2024 Utilities Answer Date Recorded In the past 12 months, has t he electric, gas, oil or water company threatened to shut off services in your home? No 12/24/2024 Internet Access Answer Date Recorded Internet Access Q1 Yes 12/24/2024 Internet Access Q2 Not on file 12/24/2024 Comments No Sex and Gender Information Value Date Recorded Sex Assigned at Female 01/17/2022 10:36 AM EDT Legal Sex Female 10:36 AM EDT Gender Identity Female 01/17/2022 10:36 AM EDT Sexual Orientation Choose not to disclose 2021 10:36 AM EDT documented as of this encounter Last Filed Vital Signs Vital Sign Reading Time Taken Comments Blood Pressure 122/80 02/10/2025 11:20 AM EST Pulse 84 02/10/2025 11:20 AM EST Temperature 36.8 C (98.2 F) 02/10/2025 11:20 AM EST Respiratory Rate 20 02/10/2025 11:20 AM EST Oxygen Saturation 98% 02/10/2025 11:20 AM EST Inhaled Oxygen Concentration - - Weight 102 kg (225 lb) 02/10/2025 11:20 AM EST Height 177.8 cm (5' 10 ) 02/10/2025 11:20 AM EST Body Mass Index 32.28 02/10/2025 11:20 AM EST documented in this encounter Plan of Treatment Upcoming Encounters Date Type Department Care Team (Late st Contact Info) Description 02/18/2025 10:30 AM EST Office Visit [facility] MED & PEDS [address] [place] [address] Nae Villareal MD [address] [place] [address] 02/21/2025 3:15 PM EST Office Visit [facility] MED & PEDS [address] [place] [address] Cora Harper CNP [address] [place] [address] documented as of this encounter Procedures Procedure Name Priority Date/Time Associated Diagnosis Comments POCT URINALYSIS DIPSTICK Routine 02/10/2025 1:10 PM EST Subacute vaginitis BACTERIAL VAGINOSIS PANEL Routine 02/10/2025 11:30 AM EST Subacute vaginitis documented in this encounter Results * POCT Urinalysis (02/10/2025 1:10 PM EST) Color, UA Yellow Clarity, UA Clear Glucose, UA Negative Bilirubin, UA Negative Ketones, UA Positive Comment:trace Spec Grav, UA 1.020 Blood, UA Negative Negative, None Detected pH, UA 6.5 Protein, UA Trace Urobilinogen, UA 0.2 Leukocytes, UA Negative Negative, Rare, Trace Nitrite, UA Negative Negative, None Detected Appearance, UA clear QC Media Lot # [id number] Lot# Expiration Date [id number] Urine (Urine, Random) 02/10/2025 1:10 PM EST Hina Shay MD POINT OF CARE TEST ENTER/EDIT ORDERABLES Final Result * Bacterial Vaginosis Panel (02/10/2025 11:30 AM EST) TRICHOMONAS VAGINALIS DETECTION BY PCR NOT DETECTED Not Detect [facility] BACTERIAL VAGINOSIS DETECTION BY PCR NEGATIVE Negative [facility] Comment:The BV organism targ ets of the Xpert Xpress MVP test can becommensal in women; Xpert Xpress MVP positive results forbacterial vaginosis should be considered in conjunction withother clinical and patient information to determine thedisease status. Organisms that are not detected by the XpertXpress MVP test have also been reported to be associatedwith BV and aerobic vaginitis.The Xpert Xpress MVP test performance has not been evaluatedin patients under the age of 14. [facility] [employer] DETECTION BY PCR NOT DETECTED Not Detect [facility] Lashawn glab krusei PCR NOT DETECTED Not Detect [facility] Swab Vaginal structure / Unknown 02/10/2025 11:30 AM EST 02/10/2025 2:23 PM EST Hina Shay MD LAB MICROBIOLOGY - GENERAL OR DERABLES Final Result [facility] [address] [place] [address] [phone] documented in this encounter Visit Diagnoses Diagnosis Subacute vaginitis- Primary documented in this encounter Care Teams Piping Drafter Relationship Specialty Start Date End Date Cora Harper CNP PCP - General Family Medicine 10/30/24 documented as of this encounter
[2025-02-10 14:25] LABS: MANUAL DIFF FLAG NO
[2025-02-10 14:36] LABS: Hematocrit 41.9 % (37.0-47.0); Hemoglobin 13.5 g/dl (12.0-16.0); Imm Gran Abs Auto 0.01 X10*3/uL (0.00-0.03); Imm Gran Pct Auto 0.2 % (0.0-0.4); Lymphocytes Absolute Auto 1.4 X10*3/uL (1.2-4.9); Mean Corpuscular HGB Conc 32.2 g/dl (31.0-35.0); Mean Corpuscular Hemoglobin 26.2 pg (27.0-33.0); Mean Corpuscular Volume 81.2 fL (80.0-98.0); NRBC Abs Auto 0.000 X10*3/uL (0.0-0.012); NRBC Pct Auto 0.0 /100WBC (0.0-0.2); Platelet Count 204 X10*3/uL (160-400); Red Blood Count 5.16 X10*6/uL (4.20-5.50); White Blood Count 4.4 X10*3/uL (4.8-10.8)
[2025-02-10 15:22] LABS: Bacterial Vaginosis PCR NEGATIVE (Negative); Candida Group PCR NOT DETECTED (Not Detect); Candida glab krusei PCR NOT DETECTED (Not Detect); Trichomonas vaginalis PCR NOT DETECTED (Not Detect)
--- OUTSIDE RECORDS SUMMARY | 2025-02-10 16:01 | XMS_ITS | Encounter Summary ---
Author Organization [employer] Address [address] [facility] [address] [place] [address] Care Team Providers Care Track Equipment Operator Name Role Phone Cora Harper CNP Primary Care Provider [phone] Reason for Visit * Reason Onset Date Comments Appointment Request 12/06/2024 Encounter Details Date Type Department Care Team ([facility] st Contact Info) Description 12/06/2024 Telephone [facility] MED & PEDS [address] [place], [place] [phone] Cora Harper CNP [address] [place] [address] Appointment Request Social History Tobacco Use Types [...] the past 12 months, has t he [employer], [employer], oil or water company threatened to shut [...] encounter Miscellaneous Notes * Telephone Encounter - Braden Tsai - 12/06/2024 11:20 AM EDT Tc from pt requesting to schedule derm apt Contact pt at [phone] documented in this encounter Plan of Treatment Upcoming Encounters Date Type Department Care Team (Late st Contact Info) Description 02/18/2025 10:30 AM EST Office Visit [facility] MED & PEDS [address] [place] [address] Nae Villareal MD [address] [place] [address] 02/21/2025 3:15 PM EST Office Visit [facility] MED & PEDS [address] [place] [address] Cora Harper CNP [address] [place] [address] documented as of this encounter Visit Diagnoses Not on filedocumented in this encounter Care Teams Track Equipment Operator Relationship Specialty Start Date End Date Cora Harper CNP PCP - General Family Medicine 10/30/24 documented as of this encounter
--- OUTSIDE RECORDS SUMMARY | 2025-02-10 16:01 | XMS_ITS | Encounter Summary ---
Author Organization [employer] Address [address] [facility] 7[address] [place] [address] Care Team Providers Care School Cook Name Role Phone Yoko Zhang MD Primary Care Provider [phone] Cora Harper CNP Primary Care Provider [phone] Reason for Visit * Reason Onset Date Comments Call Back Request 07/13/2023 Encounter Details Date Type Department Care Team ([facility] st Contact Info) Description 07/13/2023 Telephone [facility] MEDICINE [address] [place] [address] Yoko Zhang MD [address] [place], [place] [phone] Call Back Request Social History Tobacco Use [...] today on 07/12with ENT at [address] [facility] in [place] and needs a referral in order to bill insurance documented in this encounter Plan of Treatment Upcoming Encounters Date Type Department Care Team (Late st Contact Info) Description 02/18/2025 10:30 AM EST Office Visit [facility] MED & PEDS [address] [place] [address] Nae Villareal MD [address] [place] [address] 02/21/2025 3:15 PM EST Office Visit [facility] MED & PEDS [address] [place] [address] Cora Harper CNP [address] [place] [address] documented as of this encounter Visit Diagnoses Not on filedocumented in this encounter Care Teams School Cook Relationship Specialty Start Date End Date Yoko Zhang MD [address] [place] [address] PCP - General Family Medicine 06/21/19 10/29/24 Cora Harper CNP [address] [place] [address] PCP - General Family Medicine 10/30/24 documented as of this encounter
--- OUTSIDE RECORDS SUMMARY | 2025-02-10 16:01 | XMS_ITS | Clinical Summary ---
Author Organization [employer] Address [address] [place] [address] 7t [place] [address] Care Team Providers Care Business Process Consultant Name Role Phone Cora Harper MAYA Primary Care Provider [phone] Allergies Active Allergy Reactions Criticality Noted Date Comments Blue Dye #1 (Elnora Blue) Unknown 12/31/2024 Dust Mite Extract 04/09/2022 Flax Seed Oil 05/24/2022 Iodinated Contrast Media 12/31/2024 Molds & Smuts 04/09/2022 Pollen Extract Other,Unknown 12/31/2024 tree and shrub pollen Soy Allergy (Obsolete) Other,Unknown 12/31/2024 Glycine max (substance) Soybean-Containing Drug Products Unknown 06/10/2020 Other reaction(s): Unknown Medications butalbital-aceta minophen-caffein e 50-325-40 MG tablet TAKE 1 TABLET BY MOUTH EVERY 4 HOURS NEEDED FOR HEADACHE 04/07/19 23 Active prochlorperazine (Compazine) 5 MG tablet TAKE 1 TABLET BY MOUTH 3 TIMES A DAY NEEDED FOR NAUSEA/VOMITING 04/07/19 23 Active Senna-Plus 8.6-50 MG tablet TAKE 2 TABLETS BY MOUTH TWICE A DAY 04/07/19 23 Active GaviLAX 17 GM/SCOOP powder TAKE 17 GM BY MOUTH DAILY DISSOLVE IN WATER BEFORE TAKING 04/07/19 23 Active aspirin 81 MG EC tablet Take 81 mg by mouth in the morning. Active cyanocobalamin (Vitamin B-12) 1000 MCG tablet Take 1 tablet by mouth 1 (one) time each day. 04/16/19 23 Active folic acid (Folvite) 1 MG tablet Take 1 tablet by mouth 1 (one) time each day. 04/16/19 23 Active gabapentin (Neurontin) 300 MG capsule Take 1 capsule by mouth in the morning. 04/16/19 23 Active HPV 9-valent (Gardasil-9) suspension prefilled syringe vaccine prefilled syringeIndicatio ns:Need for prophylactic vaccination/inoc ulation against viral disease Bring to office for appointment 0.5 mL 2 05/25/19 23 Active pantoprazole (ProtoNix) 20 MG EC tabletIndication s:Tricia-Danlos syndrome TAKE 1 TABLET (20 MG) BY MOUTH BEFORE BREAKFAST. 90 tablet 3 07/26/19 23 Active clobetasol (Temovate) 0.05 % ointment Apply to affected area twice a day x 7 days 30 g 09/05/19 24 Active Chlorhexidine Gluconate (Hibiclens) 4 % solutionIndicati ons:Folliculitis Rinse area with water, then cover affected skin, wash gently. Rinse again thoroughly. 236 mL 1 12/10/19 25 Active metroNIDAZOLE (Flagyl) 500 MG tablet Take 1 tablet (500 mg) by mouth 2 times daily for 7 days. 14 tablet 02/11/20 25 025 Active metroNIDAZOLE (Metrogel) 0.75 % vaginal gel Insert into the vagina 2 (two) times a week. 70 g 02/11/20 25 026 Active metroNIDAZOLE (MetroCream) 0.75 % creamIndications :Rosacea Apply topically 2 times daily. Apply to affected area only. 45 g 2 04/15/19 25 025 Discontin ued(Thera py completed ) Active Problems Problem Noted Date Diagnosed Date Class 1 obesity 12/31/2024 Congenital pectus excavatum 12/31/2024 Amygdalolith 08/16/2023 Chronic rhinitis 07/20/2023 Overview (12/31/2024): Chronic rhinitis; Note: Date Diagnosed: 07/20/2023 4:58 PM (J31.0) Hx of labyrinthitis 05/24/2022 ADHD (attention deficit hyperactivity disorder) 05/24/2022 Assessment & Plan (01/01/2025 12:48 PM EDT): Pt declined psych referral today for condition management at this time, she would like to establish care with cards first due to her inability to take stimulant meds. Chronic joint pain 05/24/2022 Depression 05/24/2022 Syncopal episodes 05/24/2022 High risk HPV infection 04/12/2022 Other specified disorders of nose and nasal sinu ses 06/28/2021 Overview (12/31/2024): Other specified disorders of nose and nasal sinuses; Note: Date Diagnosed: 06/28/2021 4:18 PM (J34.89) Deviated nasal septum 06/28/2021 Overview (12/31/2024): Deviated nasal septum; Note: Date Diagnosed: 06/28/2021 4:17 PM (J34.2) Cystic fibrosis 06/28/2021 Overview (12/31/2024): Cystic fibrosis NOS-Other and unspecified disorders of metabolism:; Note: Date Diagnosed: 06/28/2021 4:17 PM (277.00) Migraine without aura, not refractory 01/01/2020 Overview (12/31/2024): Migraine without aura, not intractable, without status migrainosus; Note: Date Diagnosed: 01/01/2020 5:18 PM (G43.009) Cardiac arrhythmia 01/01/2020 Overview (12/31/2024): Other specified cardiac arrhythmias; Note: Date Diagnosed: 01/01/2020 5:17 PM (I49.8) Chronic tonsillitis 12/03/2019 Overview (12/31/2024): Chronic tonsillitis; Note: Date Diagnosed: 12/03/2019 10:49 AM (J35.01) Orthostatic hypotension 07/22/2019 Overview (12/31/2024): Hypotension, postural; Note: Date Diagnosed: 07/22/2019 2:25 PM (I95.1) Abnormal auditory perception 07/22/2019 Overview (12/31/2024): Other abnormal auditory perceptions, bilateral; Note: Date Diagnosed: 07/22/2019 2:25 PM (H93.293) Right bundle branch block (R BBB) determined by electrocardiography 06/21/2019 Tricia-Danlos syndrome 06/21/2019 Assessment & Plan (01/01/2025 12:48 PM EDT): Assessment and Plan: 1. 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 No features suggestive of vascular EDS or other rarer subtypes at this time. Currently managed symptomatically. No acute joint dislocations or soft tissue injuries reported today. Plan: Continue physical therapy to improve joint stability and reduce injury risk. Monitor and refer to specialists for complications: POTS, GI dysmotility, or early signs of vascular involvement. Future consideration for pain management optimization if pain is not well controlled (consider multidisciplinary pain clinic). Encouraged low-impact exercise (e.g., swimming, Pilates). Orders: Referral to Gastroenterology; Future Encounters Date Type Department Care Team Description 02/10/2025 11:15 AM EST [facility] Visit [facility] [address] [place] [address] Hina Shay MD Subacute vaginitis (Primary Dx) 02/10/2025 Travel 02/03/2025 Telephone [facility] [address] [place] [address] Cora Harper CNP Nurse Triage 12/31/2024 2:30 PM EDT Office Visit [facility] [address] [place] [address] Cora Harper CNP Encounter for physical examination (Primary Dx); Chronic left shoulder pain; Palpitations; POTS (postural orthostatic tachycardia syndrome); Environmental and seasonal allergies; Tricia-Danlos syndrome; Attention deficit hyperactivity disorder (ADHD), combined type; Gastrointestinal dysmotility 12/31/2024 Travel 12/24/2024 Patient Outreach [facility] [address] [place] [address] Cora Harper CNP Pre-visit Planning (SDOH Screening negative and Tobacco screening negative) 12/11/2024 Telephone [facility] [address] [place] [address] Cora Harper CNP derm appt 12/09/2024 5:20 PM EDT Office Visit [facility] [address] [place] [phone] Nae Villareal MD Folliculitis (Primary Dx); Elevated BP without diagnosis of hypertension 12/09/2024 Travel 12/06/2024 Telephone [facility] [address] [place] [address] [phone] Cora Harper CNP Nurse Triage 12/06/2024 Telephone [facility] [address] [place], [place] [phone] Cora Harper CNP Appointment Request 11/27/2024 Telephone [facility] [address] [place] [address] [phone] Cora Harper CNP Appointment Request 11/27/2024 Telephone [facility] [address] [place] [address] [phone] Cora Harper CNP Appointment Request from Last 3 Months Immunizations Immunization Administration Dates Next Due HPV 9-Valent 07/29/2022,06/17/2022 Pfizer Covid-19 Vaccine 12+ 08/06/2020, Tdap 06/17/2022 Family History Medical History Relation Name Comments paternal aunts have BRCA gene Father Relation Name Status Comments Father Social History Tobacco Use Types Packs/Day Years [...] Mass Index 32.28 02/10/2025 11:20 AM EST Plan of Treatment Upcoming Encounters Date Type Department Care Team (Late st Contact Info) Description 02/18/2025 10:30 AM EST Office Visit [facility] [address] [place] [address] Nae Villareal MD [address] [place] [address] 02/21/2025 3:15 PM EST Office Visit [facility] [address] [place] [address] Cora Harper CNP [address] [facility] [address] Health Maintenance Due Date Last Done Comments Depression Screening 1991 Disability Screening 1991 Alcohol/Substance Use Screening 2003 Family Planning (PISQ) 06/07/2006 Hepatitis B Vaccines (1 of 3 - 19+ 3-dose series) 06/07/2010 HPV Vaccines (3 - 3-dose series) 12/17/2022 07/29/2022, 06/17/2022 COVID-19 Vaccine (4 - 2024-2 6 season) 2024 12/07/2023, 08/06/2020, 07/16/2020 Influenza Vaccine (#1) 2024 Cervical Cancer Screening 05/24/2025 HPV/Cotest 05/24/2025 05/24/2022, 02/02/2021 Pap Smear 05/24/2025 05/24/2022, 02/02/2021, 02/02/2021 Tobacco Screening 12/09/2025 12/09/2024 SDOH Screening 12/24/2025 12/24/2024 DTaP/Tdap/Td Vaccines (2 - T d or Tdap) 06/17/2032 06/17/2022 Zoster Vaccines (1 of 2) 06/07/2041 RSV Patients and Patients Aged 60 years or older (1 - 1-dose 75+ series) 06/07/2066 Hepatitis C Screening Completed 07/15/2022 HIV Screening Completed 05/23/2023 HIB Vaccines Aged Out No longer eligi [...] Routine 02/10/2025 1:10 PM EST Subacute vaginitis CBC WITH AUTO DIFFERENTIAL Routine 02/10/2025 12:04 PM EST Encounter for physical examination SED RATE BY MODIFIED WESTERGREN Routine 02/10/2025 12:03 PM EST Encounter for physical examination BACTERIAL VAGINOSIS PANEL Routine 02/10/2025 11:30 AM EST Subacute vaginitis ECG 12-LEAD Routine 01/01/2025 12:48 PM EDT Palpitations POTS (postural orthostatic tachycardia syndrome) HIV 1/2 ANTIGEN/ANTIBODY, FOURTH GENERATION W/RFL Routine 05/23/2023 3:09 PM EST Encntr screen for infections w sexl mode of transmiss HEPATITIS PANEL, GENERAL Routine 07/15/2022 12:44 PM EDT Need for prophylactic vaccination/inoculat ion against viral disease IMAGE-GUIDED PAP W/AGE BASED SCR PROTOCOLS Routine 05/24/2022 12:31 PM EST Cervical cancer screening from Last 3 Months or Most Recently Relevant to Health Maintenance Results * POCT Urinalysis (02/10/2025 1:10 PM [...] Media Lot # [id number] Lot# Expiration Date [id number] Urine (Urine, Random) 02/10/2025 1:10 PM EST us Hina Shay MD POINT OF CARE TEST ENTER/EDIT ORDERABLES Final Result * (ABNORMAL) CBC auto differential (02/10/2025 12:04 PM EST) White Blood Count 4.4(L) 4.8 - 10.8 X10*3/uL [facility] Red Blood Count 5.16 4.20 - 5.50 X10*6/uL [facility] Hemoglobin 13.5 12.0 - 16.0 g/dl [facility] Hematocrit 41.9 37.0 - 47.0 % [facility] Mean Corpuscular Volume 81.2 80.0 - 98.0 fL [facility] Mean Corpuscular Hemoglobin 26.2(L) 27.0 - 33.0 pg [facility] Mean Corpuscular HGB Conc 32.2 31.0 - 35.0 g/dl [facility] Red Cell Distribution Width 12.9 11.0 - 16.0 % [facility] Platelet Count 204 160 - 400 X10*3/uL [facility] Mean Platelet Volume 9.5 9.4 - 12.3 fL [facility] Neutrophils Percent Auto 59.2 45 - 73 % [facility] Imm Gran Pct Auto 0.2 0.0 - 0.4 % [facility] Lymphocytes Percent Auto 31.0 20 - 40 % [facility] Monocytes Percent Auto 5.5 2 - 11 % [facility] Eosinophils Percent Auto 3.4 0 - 4 % [facility] Basophils Percent Auto 0.7 0 - 2 % [facility] NRBC Pct Auto 0.0 0.0 - 0.2 /100WBC [facility] Neutrophils Absolute Auto 2.6 2.0 - 8.3 x10*3/uL [facility] Imm Gran Abs Auto 0.01 0.00 - 0.03 X10*3/uL [facility] Lymphocytes Absolute Auto 1.4 1.2 - 4.9 X10*3/uL [facility] Monocytes Absolute Auto 0.2 0.1 - 1.2 X10*3/uL [facility] Eosinophils Absolute Auto 0.2 0.0 - 0.4 X10*3/uL [facility] Basophils Absolute Auto 0.0 0.0 - 0.2 X10*3/uL [facility] NRBC Abs Auto 0.000 0.0 - 0.012 X10*3/uL [facility] Blood Venous blood specimen / Unknown 02/10/2025 12:04 PM EST 02/10/2025 2:18 PM EST [facility] LAB BLOOD ORDERABLES Diana l Result Performing Organization Address City/[facility]/ZIP Co de Phone Number [facility] [address] [place] [phone] * Sed Rate by Modified Luisergren (02/10/2025 12:03 PM EST) Pathologist [facility] Erythrocyte Sedimentation Rate 6 0 - 20 MM/HR [facility] Comment:Patients with polycy themia and many hemoglobin abnormalitiesmay have depressed sed rates whereas patients with anemiamay have elevated sed rates. Blood Venous blood specimen / Unknown 02/10/2025 12:03 PM EST 02/10/2025 2:18 PM EST [facility] LAB BLOOD ORDERABLES Diana l Result Performing Organization Address City/[facility] Co de Phone Number [facility] [address] [place] [phone] * Bacterial Vaginosis Panel (02/10/2025 11:30 AM EST) Pathologist [facility] TRICHOMONAS VAGINALIS DETECTION BY PCR NOT DETECTED Not Detect [facility] BACTERIAL VAGINOSIS DETECTION BY PCR NEGATIVE Negative [facility] Comment:The BV organism targ ets of [...] DETECTION BY PCR NOT DETECTED Not Detect [facility] Lashawn glab krusei PCR NOT DETECTED Not Detect [facility] Swab Vaginal structure / Unknown 02/10/2025 11:30 AM EST 02/10/2025 2:23 PM EST us Hina Shay MD LAB MICROBIOLOGY - GENERAL OR DERABLES Final Result [facility] [address] [place] [address] [phone] * ECG 12 lead (01/01/2025 12:48 PM EDT) Narrative Cora Harper CNP - 01/01/2025 12:48 PM EDT NSR, Rate 82bpm, RSR' in V1 and V2, no acute abnormalities. Pending cosign: Preethi Alvarado MD Cora Harper CNP ECG ORDERABLES Final Res ult * HIV-1/2 Antigen and Antibodies, Fourth Generation, with Reflexes (05/23/2023 3:09 PM EST) HIV AB/AG Nonreactive Nonreactive [facility] Comment:HIV-1 p24 Ag and/or HIV-1/HIV-2 Ab not detected.A test result that is nonreactive does not exclude thepossibility of exposure to or infection with HIV-1 and/orHIV-2. Nonreactive results in this assay for individualswith prior exposure to HIV-1 and/or HIV-2 may be due toantigen and antibody levels that are below the limit ofdetection of this assay.[employer] HIV Ag/Ab Combo assay result andsupplemental assay results should be interpreted inconjunction with the patient's clinical presentation,history and other laboratory results. If the results areinconsistent with clinical evidence, additional testing issuggested to confirm the result. Blood Venous blood specimen / Unknown 05/23/2023 3:09 PM EST 05/23/2023 5:30 PM EST Ana María Jo CN LAB BLOOD ORDERABLES Diana phillips Result [facility] [address] [place] [address] [phone] * (ABNORMAL) Hepatitis Panel, General (07/15/2022 12:44 PM EDT) Hepatitis A Antibody Total REACTIVE( A) NON-REACT POLI [facility] [place] [employer] Comment: For additional information, please refer to http://Green Momit.Netheos/faq/UFQ905 (This link is being provided for informational/ educational purposes only.) Hepatitis B Surface Antibody QL REACTIVE( A) NON-REACT POLI [facility] [place] [employer] Hepatitis B Surface Ag NON-REACT POLI NON-REACT POLI [facility] [place] [employer] Hepatitis B Core Antibody Total NON-REACT POLI NON-REACT POLI [facility] [place] [employer] Hepatitis C Antibody NON-REACT POLI NON-REACT POLI [facility] [place] [employer] Index 0.10 <1.00 [facility] [place] [employer] Comment: HCV antibody was non-reactive. There is no laboratory evidence of HCV infection. In most cases, no further action is required. However, if recent HCV exposure is suspected, a test for HCV RNA (test code 42715) is suggested. For additional information please refer to http://Green Momit.Netheos/faq/INN05n3 (This link is being provided for informational/ educational purposes only.) 07/15/2022 12:4 4 PM EDT 07/15/2022 12:44 PM EDT Narrative [facility] - 07/15/2022 11:27 PM EDT FASTING:YES FASTING: YES Yoko Zhang MD LAB BLOOD ORDERABLES Final Resul t [facility] [address], [place] [address] [facility] [place] [employer] [address] [place] [address] * Image-Guided Pap with Age-Based Screening Protocols (05/24/2022 12:31 PM EST) Comment [facility] Comment: This order for age-based cervical cancer and STI screening follows ACOG guidelines(PB 168, 140, NZJ245). See individual assays for performing site location. Clinical Information: None given [facility] LMP: 05/13/22 [facility] [place] [employer] Prev. PAP: YES [facility] Prev. BX: YES [facility] SOURCE: None given [facility] Statement Of Adequacy: [facility]ent Comment: Satisfactory for evaluation. Endocervical/transformation zone component present. Interpretation/ Result: Negative for intraepithelial lesion or malignancy. [facility] COMMENT: This Pap test has been evaluated with computer assisted technology. [facility] [place] [employer] Cytotechnologis t: [facility] Comment: RK, CT(ASCP) CT screening location: [place] [address] Review Cytotechnologis t: [facility] Comment: MXD, CT (ASCP) CT screening location: [place] [address] (Always Message) [facility] Comment: EXPLANATORY NOTE: The Pap is a [...] HPV nRNA E6/E7 Not Detected Not Detected [facility] Comment: Methodology: Brake Operator Sheet Metal-Mediated Amplification This assay detects E6/E7 viral messenger RNA (mRNA) from 14 high-risk HPV types (16,18,31,33,35,39,45,51,52,56,58,59,66,68). Cervical sources are required for HPV testing. If a vaginal source from a patient who has had a total hysterectomy with removal of cervix was submitted, please contact the testing laboratory for alternative testing options. For additional information, please refer to http://education.Netheos/faq/MPZ465h7 (This link if provided for information/ educational purposes only.) Specimen from uterine cervix (specimen) 05/24/2022 12:31 PM EST 05/25/2022 8:31 AM EST Ana María Jo [facility] LAB BLOOD ORDERABLES Diana l Result [facility] [address] [facility], [place] [address] [facility] [address] [facility], ([address]) [place] [address] from Last 3 Months or Most Recently Relevant to Health Maintenance Insurance [facility] 3 Care Teams Business Process Consultant Relationship Specialty Start Date End Date Cora Harper CNP PCP - General Family Medicine 10/30/24
--- OUTSIDE RECORDS SUMMARY | 2025-02-10 16:01 | XMS_ITS | Encounter Summary ---
Author Organization [employer] Address [address] [facility] 7t [place] [address] Care Team Providers Care Hotel Housekeeper Name Role Phone Yoko Zhang MD Primary Care Provider [phone] Cora Harper CNP Primary Care Provider [phone] Reason for Visit * Reason Onset Date Comments Nurse Triage 03/28/2023 Encounter Details Date Type Department Care Team ([facility] st Contact Info) Description 03/28/2023 Telephone [facility] [address] [place] [address] Yoko Zhang MD [address] [place] [address] Nurse Triage Social History Tobacco Use Types [...] Description 02/18/2025 10:30 AM EST Office Visit [facility] [address] [place] [address] Nae Villareal MD [address] [place] [address] 02/21/2025 3:15 PM EST Office Visit [facility] [address] [place] [address] Cora Harper CNP [address] [place] [address] documented as of this encounter Visit Diagnoses Not on filedocumented in this encounter Care Teams Hotel Housekeeper Relationship Specialty Start Date End Date Yoko Zhang MD [address] [place] [phone] PCP - General Family Medicine 06/21/19 10/29/24 Cora Harper CNP [address] [place] [address] PCP - General Family Medicine 10/30/24 documented as of this encounter
--- OUTSIDE RECORDS SUMMARY | 2025-02-10 16:01 | XMS_ITS | Encounter Summary ---
Author Organization [employer] Address [address] [facility] 7t [place] [address] Care Team Providers Care Recreation Worker Name Role Phone Cora Harper MAYA Primary Care Provider [phone] Encounter Details Date Type Department Care Team (Latest Contact Info) Description 02/10/2025 Travel Social History Tobacco Use Types Packs/Day Years [...] as of this encounter Plan of Treatment Upcoming Encounters Date Type Department Care Team (Late st Contact Info) Description 02/18/2025 10:30 AM EST Office Visit [facility] [address] [place] [address] Nae Villareal MD [address] [place] [address] 02/21/2025 3:15 PM EST Office Visit [facility] [address] [place] [address] Cora Harper CNP [address] [place] [address] documented as of this encounter Visit Diagnoses Not on filedocumented in this encounter Care Teams Recreation Worker Relationship Specialty Start Date End Date Cora aHrper CNP PCP - General Family Medicine 10/30/24 documented as of this encounter
--- OUTSIDE RECORDS SUMMARY | 2025-02-10 16:01 | XMS_ITS | Encounter Summary ---
Author Organization [employer] Address [address] [facility] [address] [place] [address] Care Team Providers Care Gwot Ia/[employer] Intelligence Support Name Role Phone Yoko Zhang MD Primary Care Provider [phone] Cora Harper CNP Primary Care Provider [phone] Encounter Details Date Type Department Care Team (Late st Contact Info) Description 05/05/2024 Orders Only [facility] [address] [place], [place] [phone] Nae Villareal MD [address] [place] [address] Social History Tobacco Use Types Packs/Day Years [...] AM EST Office Visit [facility] [address] [place] [address] Nae Villareal MD [address] [place] [address] 02/21/2025 3:15 PM EST Office Visit [facility] [address] [place] [address] Cora Harper CNP [address] [place] [address] documented as of this encounter Visit Diagnoses Not on filedocumented in this encounter Care Teams Gwot Ia/[employer] Intelligence Support Relationship Specialty Start Date End Date Yoko Zhang MD [address] [place] [address] PCP - General Family Medicine 06/21/19 10/29/24 Cora Harper CNP [address] [place] [address] PCP - General Family Medicine 10/30/24 documented as of this encounter
--- OUTSIDE RECORDS SUMMARY | 2025-02-10 16:01 | XMS_ITS | Encounter Summary ---
Author Organization [employer] Address [address] [place] [address] 7 [place] [address] Care Team Providers Care Finding Fastener Name Role Phone Yoko Zhang MD Primary Care Provider [phone] Cora Harper CNP Primary Care Provider [phone] Encounter Details Date Type Department Care Team (Late st Contact Info) Description 04/05/2022 Abstract [facility] [address] [place], [place] [phone] Yoko Zhang MD [address] [place] [address] Social History Tobacco Use Types Packs/Day Years [...] Description 02/18/2025 10:30 AM EST Office Visit [facility] [address] [place] [address] Nae Villareal MD [address] [place] [address] 02/21/2025 3:15 PM EST Office Visit [facility] [address] [place] [address] Cora Harper CNP [address] [place] [address] documented as of this encounter Visit Diagnoses Not on filedocumented in this encounter Care Teams Finding Fastener Relationship Specialty Start Date End Date Yoko Zhang MD [address] [place] [address] PCP - General Family Medicine 06/21/19 10/29/24 Cora Harper CNP [address] [place] [address] PCP - General Family Medicine 10/30/24 documented as of this encounter
--- OUTSIDE RECORDS SUMMARY | 2025-02-10 16:01 | XMS_ITS | Encounter Summary ---
Author Organization [employer] Address [address] [place] [address] 7[address] [place] [address] Care Team Providers Care Wound/Ostomy Nurse Name Role Phone Yoko Zhang MD Primary Care Provider [phone] Cora Harper CNP Primary Care Provider [phone] Encounter Details Date Type Department Care Team (Late st Contact Info) Description 04/11/[address] [facility] MEDICINE [address] [place], [place] [phone] Se Danielson PharmD Social History Tobacco Use [...] Description 02/18/2025 10:30 AM EST Office Visit [facility] PEDS [address] [place] [address] Nae Villareal MD [address] [place] [address] 02/21/2025 3:15 PM EST Office Visit [facility] MED & PEDS [address] [place] [address] Cora Harper CNP [address] [place] [address] documented as of this encounter Visit Diagnoses Not on filedocumented in this encounter Care Teams Wound/Ostomy Nurse Relationship Specialty Start Date End Date Yoko Zhang MD [address] [place] [address] PCP - General Family Medicine 06/21/19 10/29/24 Cora Harper CNP [address] [place] [address] PCP - General Family Medicine 10/30/24 documented as of this encounter
--- OUTSIDE RECORDS SUMMARY | 2025-02-10 16:01 | XMS_ITS | Encounter Summary ---
Author Organization [employer] Address [address] [facility] 7t [place] [address] Care Team Providers Care Manager Of Purchasing Name Role Phone Yoko Zhang MD Primary Care Provider [phone] Cora Harper CNP Primary Care Provider [phone] Encounter Details Date Type Department Care Team ([facility] st Contact Info) Description 03/17/2023 Orders Only [facility] MED & PEDS [address] [place], [place] [id number] Nae Villareal MD [address] [place] [address] Vaginal discharge (Primary Dx) Social History Tobacco [...] Description 02/18/2025 10:30 AM EST Office Visit [facility] MED & PEDS [address] [place] [address] Nae Villareal MD [address] [place] [address] 02/21/2025 3:15 PM EST Office Visit [facility] MED & PEDS [address] [place] [address] Cora Harper CNP [address] [place] [address] documented as of this encounter Visit Diagnoses Diagnosis Vaginal discharge- Primary Leukorrhea, not specified as infective documented in this encounter Care Teams Manager Of Purchasing Relationship Specialty Start Date End Date Yoko Zhang MD [address] [place] [address] PCP - General Family Medicine 06/21/19 10/29/24 Cora Harper CNP [address] [place] [address] PCP - General Family Medicine 10/30/24 documented as of this encounter
--- OUTSIDE RECORDS SUMMARY | 2025-02-10 16:02 | XMS_ITS | Encounter Summary ---
Author Organization [employer] Address [address] [facility] 7t [place] [address] Care Team Providers Care Plywood Layup Line Core Feeder Name Role Phone Cora Harper CNP Primary Care Provider [phone] Reason for Visit * Reason Onset Date Comments Appointment Request 11/27/2024 Encounter Details Date Type Department Care Team (Late st Contact Info) Description 11/27/2024 Telephone [facility] MEDICINE [address] [place] [address] Cora Harper CNP [address] [place] [address] Appointment Request Social History Tobacco Use Types [...] Miscellaneous Notes * Telephone Encounter - Adrian Moreno - 11/27/2024 10:44 AM EDT Tc from pt requesting a call back to schedule Derm visit. Pt states she was given Doxycyline for a rash in which the rash did go away but then pt was put on a steroid and rash returned. Please contact pt at [phone]. documented in this encounter Plan of Treatment Upcoming Encounters Date Type Department Care Team (Late st Contact Info) Description 02/18/2025 10:30 AM EST Office Visit [facility] MED & PEDS [address] [place] [address] Nae Villareal MD [address] [place] [address] 02/21/2025 3:15 PM EST Office Visit [facility] MED & PEDS [address] [place] [address] Cora Harper CNP [address] [place] [address] documented as of this encounter Visit Diagnoses Not on filedocumented in this encounter Care Teams Plywood Layup Line Core Feeder Relationship Specialty Start Date End Date Cora Harper CNP PCP - General Family Medicine 10/30/24 documented as of this encounter
--- OUTSIDE RECORDS SUMMARY | 2025-02-10 16:02 | XMS_ITS | Encounter Summary ---
Author Organization [employer] Address [address] [facility] 7t [place] [address] Care Team Providers Care Financial Services Associate Name Role Phone Yoko Zhang MD Primary Care Provider [phone] Cora Harper CNP Primary Care Provider [phone] Reason for Visit * Reason Onset Date Comments Nurse Triage 10/04/2022 Encounter Details Date Type Department Care Team ([facility] st Contact Info) Description 10/04/2022 Telephone [facility] MEDICINE [address] [place] [address] Yoko Zhang MD [address] [place] [address] Nurse Triage Social History Tobacco Use Types [...] aware of Pt allergies. Apt 10/[address] @ pending sale to [facility]. [facility]. Insurance is verified as active prior to [...] 02/18/2025 10:30 AM EST Office Visit [facility] MED & PEDS [address] [place] [address] Nae Villareal MD [address] [place] [address] 02/21/2025 3:15 PM EST Office Visit [facility] MED & PEDS [address] [place] [address] Cora Harper CNP [address] [place] [address] documented as of this encounter Visit Diagnoses Not on filedocumented in this encounter Care Teams Financial Services Associate Relationship Specialty Start Date End Date Yoko Zhang MD [address] [place] [address] PCP - General Family Medicine 06/21/19 10/29/24 Cora Harper CNP [address] [place] [address] PCP - General Family Medicine 10/30/24 documented as of this encounter
[2025-02-10 16:29] LABS: Alanine Aminotransferase 12 U/L (0-31); Albumin Level 4.7 g/dL (3.5-5.0); Alkaline Phosphatase 51 U/L (39-117); Anion Gap 11 (12-20); Aspartate Amino Transferase 19 U/L (5-31); Blood Urea Nitrogen 13 mg/dL (9-16); Calcium 9.6 mg/dL (8.4-10.2); Carbon Dioxide 25 mmol/L (22-29); Chloride 108 mmol/L (96-108); Cholesterol 276 mg/dL (<200); Estimated Glomerular Filt Rate > 60; HDL Cholesterol 56 mg/dL (>40); Potassium 4.1 mmol/L (3.3-5.1); Sodium 140 mmol/L (135-145); Total Protein 7.2 g/dL (6.5-8.0); Triglycerides 88 mg/dL (<150)
== END 2025-02-10 12:02 | disposition home or self-care (01) ==
LOC: HO.CHCLDS 12:01
PROVIDERS: Family Medicine
DX: Z00.00 Encounter for general adult medical examination without abnormal findings (principal); N76.1 Subacute and chronic vaginitis
CPT/HCPCS: 36415; 80053; 80061; 81515; 85025; 85652; 86140

== ENCOUNTER 2025-02-21 16:13 | Outpatient (REF) | payer OTHER, SELFPAY ==
--- OUTSIDE RECORDS SUMMARY | 2025-02-18 10:30 | XMS_ITS | Encounter Summary ---
Author Organization [employer] Address [address] [facility] 7 [place] [address] Care Team Providers Care Veneer Manufacturer Name Role Phone Cora Harper CNP Primary Care Provider [phone] Reason for Visit * Reason Comments dermatitis fu Encounter Details Date Type Department Care Team ([facility] Contact Info) Description 02/18/2025 10:30 AM EST Office Visit [facility] MED & PEDS [address] [place], [place] [id number] Nae Villareal MD [address] [place] [address] Perioral dermatitis (Primary Dx); Seborrheic keratosis Social History Tobacco Use Types Packs/Day Years [...] Female 01/17/2022 10:36 AM EDT Sexual Orientation Straight 02/21/2025 4: 42 PM EST documented as of this encounter Last Filed Vital Signs Vital Sign Reading Time Taken Comments Blood Pressure 124/78 02/18/2025 10:36 AM EST Pulse 86 02/18/2025 10:36 AM EST Temperature 36.4 C (97.6 F) 02/18/2025 10:36 AM EST Respiratory Rate - - Oxygen Saturation 98% 02/18/2025 10:36 AM EST Inhaled Oxygen Concentration - - Weight 101 kg (223 lb) 02/18/2025 10:36 AM EST Height - - Body Mass Index 32 02/10/2025 11:20 AM EST documented in this encounter Progress Notes * Nae Villareal MD - 02/18/2025 10:30 AM EST SUBJECTIVE Iris Garcia is a 34 y.o. female who presents for dermatitis (fu). HPI Iris Garcia, 34-year-old female - History of folliculitis, now resolved - Perioral dermatitis recurring, initially resolved with doxycycline but discontinued due to severepalpitations - Perioral dermatitis worsened after use of facial steroid, with flare around mouth - Current perioral dermatitis improved with metronidazole, previously involved area under eye and around mouth, now limited to smaller areas - Sulfur soap provided temporary improvement, later stopped helping - CeraVe cleanser worsened perioral dermatitis - Vanicream used only on dry areas, not near mouth - Reports random skin patches and cystic acne - Noted small lesion under right arm, variable in size, previously identified as mole - 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 Respiratory: Negative for cough, choking and shortness of breath. Skin: Negative for pallor and rash. OBJECTIVE Vitals: 02/18/25 1036 BP: 124/78 BP Location: Left arm Patient Position: Sitting BP Cuff Size: Large adult Pulse: 86 Temp: 97.6 ??F (36.4 ??C) TempSrc: Temporal SpO2: 98% Weight: 223 lb (101 kg) Physical Exam Constitutional: General: She is not in acute distress. Appearance: Normal appearance. She is not ill-appearing, toxic-appearing or diaphoretic. Abdominal: General: Abdomen is flat. Skin: Comments: Very mild erythema of the perioral area w/ a 1 x 1 mm papule of the left upper lip. Neurological: Mental Status: She is alert. Assessment/Plan Assessment/Plan Diagnoses and all orders for this visit: Perioral dermatitis - metroNIDAZOLE (Metrogel) 0.75 % gel; Apply topically 2 times daily. Seborrheic keratosis Perioral dermatitis: - Mild perioral/periocular dermatitis. - Prescribed topical metronidazole to use if worsening; recommended discontinuation of all topical corticosteroids; advised to stop facial cosmetics and topical products including sunscreen and emollients until rash clears, then consider a non-soap cleanser; recommended use of gel or liquid sunscreen if needed; advised to avoid occlusive creams/ointments; endorsed ???do nothing?? approach as preferred if acceptable and use topical metronidazole for a limited period if flare occurs; provided educational resource and simple care instructions to follow. Seborrheic keratosis: - Lesions consistent with seborrheic keratoses; not concerning at present. - Observation; no intervention; advised removal only if lesions enlarge, become pruritic, or otherwise bothersome. Folliculitis: - Folliculitis resolved. This note was drafted using [employer]) technology. The patient/patient's guardian has been informed and has consented to the use of this technology: Yes [1] Patient Active Problem List Diagnosis Right bundle branch block (RBBB) determined by electrocardiography Tricia-Danlos syndrome High risk HPV infection Hx of labyrinthitis ADHD (attention deficit hyperactivity disorder) Chronic joint pain Depression Syncopal episodes Other specified disorders of nose and nasal sinuses Orthostatic hypotension Migraine without aura, not refractory Deviated nasal septum Cystic fibrosis (HCC) Class 1 obesity Chronic tonsillitis Chronic rhinitis Cardiac arrhythmia Amygdalolith Abnormal auditory perception Congenital pectus excavatum [2] Allergies Allergen Reactions Blue Dye #1 ([place] Blue) Unknown Dust Mite Extract Flax Seed Oil Iodinated Contrast Media Molds & Smuts Pollen Extract Other and Unknown tree and shrub pollen Soy Allergy (Obsolete) Other and Unknown Glycine max (substance) Soybean-Containing Drug Products Unknown Other reaction(s): Unknown [3] Current Outpatient Medications on File Prior to Visit Medication Sig Dispense Refill aspirin 81 MG EC tablet Take 81 mg by mouth in the morning. qktdithtqu-diwqkgyxlcrdl-awrocpdr 50-325-40 MG tablet TAKE 1 TABLET BY MOUTH EVERY 4 HOURS NEEDED FOR HEADACHE Chlorhexidine Gluconate (Hibiclens) 4 % solution Rinse area with water, then cover affected skin, wash gently. Rinse again thoroughly. 236 mL 1 clobetasol (Temovate) 0.05 % ointment Apply to affected area twice a day x 7 days 30 g 0 cyanocobalamin (Vitamin B-12) 1000 MCG tablet Take 1 tablet by mouth 1 (one) time each day. folic acid (Folvite) 1 MG tablet Take 1 tablet by mouth 1 (one) time each day. gabapentin (Neurontin) 300 MG capsule Take 1 capsule by mouth in the morning. GaviLAX 17 GM/SCOOP powder TAKE 17 GM BY MOUTH DAILY DISSOLVE IN WATER BEFORE TAKING HPV 9-valent (Gardasil-9) suspension prefilled syringe vaccine prefilled syringe Bring to office for appointment 0.5 mL 2 [] metroNIDAZOLE (Flagyl) 500 MG tablet Take 1 tablet (500 mg) by mouth 2 times daily for 7 days. 14 tablet 0 metroNIDAZOLE (Metrogel) 0.75 % vaginal gel Insert into the vagina 2 (two) times a week. 70 g 0 pantoprazole (ProtoNix) 20 MG EC tablet TAKE 1 TABLET (20 MG) BY MOUTH BEFORE BREAKFAST. 90 tablet 3 prochlorperazine (Compazine) 5 MG tablet TAKE 1 TABLET BY MOUTH 3 TIMES A DAY NEEDED FOR NAUSEA/VOMITING Senna-Plus 8.6-50 MG tablet TAKE 2 TABLETS BY MOUTH TWICE A DAY No current facility-administered medications on file prior to visit. documented in this encounter Plan of Treatment Not on file documented as of this encounter Visit Diagnoses Diagnosis Perioral dermatitis- Primary Rosacea Seborrheic keratosis documented in this encounter Care Teams Veneer Manufacturer Relationship Specialty Start Date End Date Cora Harper CNP PCP - General Family Medicine 10/30/24 documented as of this encounter
--- OUTSIDE RECORDS SUMMARY | 2025-02-21 15:15 | XMS_ITS | Encounter Summary ---
Author Organization [employer] Address [address] [place] [address] 7 [place] [address] Care Team Providers Care Police Detention Attendant Name Role Phone Bettye Harper CNP Primary Care Provider [phone] Reason for Referral * Consultation (Routine) - Pending Review Specialty Diagnoses / Procedures Referred By Isaiah hernandez Referred To Contact Vascular Surgery Diagnoses History of insertion of vertebral artery stent Bettye Harper CNP [address] [place] [address] Phone: tel: fax: Referral ID Status Reason Start Date Expiration Date Visits Requested Visits Authorized [id number] Pending Review Specialty Services Required 02/21/2025 02/21/2026 1 1 Encounter Details Date Type Department Care Team (Late st Contact Info) Description 02/21/2025 3:15 PM EST Office Visit [facility] CHC MED & PEDS [address] [place] [address] Bettye Harper CNP [address] [place] [address] Family history of diabetes mellitus (DM) (Primary Dx); Bacterial vaginosis; History of insertion of vertebral artery stent Social History Tobacco Use Types Packs/Day Years Used Date Smoking Tobacco: Never Passive Smoke Exposure: Never Smokeless Tobacco: Never Alcohol Use Standard Drinks/Week Comments Never 0 (1 standard drink = 0.6 oz pur e alcohol) Depression Answer Date Recorded Patient Health Questionnaire-9 Score 13 02/21/2025 Patient Health Questionnaire-9 Score 13 02/21/2025 Last PHQ-9: Questionnaire Data Not on file 1 04/24/2024 Housing Stability Answer Date Recorded What is [...] off services in your home? No 12/24/2024 Depression Answer Date Recorded Patient Health Questionnaire-2 Score 2 02/21/2025 Internet Access Answer Date Recorded Internet Access [...] Sign Reading Time Taken Comments Blood Pressure 132/84 02/21/2025 3:37 PM EST Pulse 88 02/21/2025 3:37 PM EST Temperature 36.6 C (97.8 F) 02/21/2025 3:37 PM EST Respiratory Rate 20 02/21/2025 3:37 PM EST Oxygen Saturation - - Inhaled Oxygen Concentration - - Weight 101 kg (222 lb) 02/21/2025 3:37 PM EST Height 177.8 cm (5' 10 ) 02/21/2025 3:37 PM EST Body Mass Index 31.85 02/21/2025 3:37 PM EST documented in this encounter Functional Status * Over the past 2 weeks, how often have you been bothered by any of the following problems? Question Answer Date of Assessment Author Patient Health Questionnaire-2 Score 2 07/2024 3:58 PM Chel Perdomo [place] * Little interest or pleasure in doing things Answer Date of Assessment Author Several days 02/21/2025 3:58 PM Yohana Perdomo MA * Feeling down, depressed, or hopeless Answer Date of Assessment Author Several days 02/21/2025 3:58 PM Yohana Perdomo MA * Trouble falling or staying asleep, or sleeping too much Answer Date of Assessment Author More than half the days 02/21/2025 3:58 PM Chel Frias [place] * Feeling tired or having little energy Answer Date of Assessment Author More than half the days 02/21/2025 3:58 PM Chel Frias [place] * Poor appetite or overeating Answer Date of Assessment Author Several days 02/21/2025 3:58 PM Yohana Perdomo MA * Feeling bad about yourself - or that you are a failure or have let yourself or your family down Answer Date of Assessment Author Not at all 02/21/2025 3:58 PM Yohana Perdomo MA * Trouble concentrating on things, such as reading the newspaper or watching television Answer Date of Assessment Author Nearly every day 02/21/2025 3:58 PM Gio Perdomo [place] * Moving or speaking so slowly that other people could have noticed? Or the opposite - being so fidgety or restless that you have been moving around a lot more than usual. Answer Date of Assessment Author Nearly every day 02/21/2025 3:58 PM Gio Perdomo MA * Thoughts that you would be better off or hurting yourself in some way Answer Date of Assessment Author Not at all 02/21/2025 3:58 PM Yohana Perdomo MA * Patient Health Questionnaire-9 Score Answer Date of Assessment Author 13 02/21/2025 3:58 PM Yohana Perdomo MA * Over the last 2 weeks, how often have you been bothered by any of the following problems? Question Answer Date of Assessment Author Feeling nervous, anxious, or on edge 2 07/2024 3:58 PM Chel Perdomo MA Not being able to stop or co ntrol worrying 1 02/21/2025 3:58 PM EST Chel Bose MA Worrying too much about diff erent things 2 02/21/2025 3:58 PM Chel Perdomo MA Trouble relaxing 2 02/21/2025 3:58 PM EST Chel Herman MA Being so restless that it is hard to sit still 3 02/21/2025 3:58 PM Chel Perdomo MA Becoming easily annoyed or irritable 2 07/2024 3:58 PM EST Chel Bose MA Feeling afraid as if somethi ng awful might happen 0 02/21/2025 3:58 PM Chel Perdomo MA DASIA-7 Total Score 12 02/21/2025 3:58 PM Chel Perdomo MA * How difficult have these problems made it for you to do your work, take care of things at home, or get along with other people? Answer Date of Assessment Author Very difficult 02/21/2025 3:58 PM Yohana Perdomo MA documented as of this encounter Progress Notes * Chel Bose MA - 02/21/2025 3:15 PM EST * Bettye Harper CNP - 02/21/2025 3:15 PM EST Subjective Patient ID: Iris Garcia is a 34 y.o. female who presents for f/u HPI Interim History -Cards referral was authorized- Dr. Jameson connective email campaign specialist for Ehler-Danlos syndrome and POTs -Pt had holter monitor completed which showed normal sinus rhythm with rare PACs and PVCs, no pauses noted. Overall it was unremarkable. -she reports total resolution of her shoulder pain. -her neurologist is recommending f/u on her LVA stent placed in [address] at [facility], [address]. Mtz. Previous provider is declining to see her. Todays concerns -report she was seen by Derm provider Dr. Villareal this week for skin check. She was prescribed metro gel for perioral dermatitis, she reports that this formulation is not as effective for symptoms as oral flagyl. -she was treated for BV with oral flagyl and reported improvement in perioral derm- almost completely resolved. -in regards to her vaginitis she reports that despite completion of flagyl course for previous infection 02/10/25 she is still having symptoms of vaginitis including some vaginal irritation. -she is also requesting A1c testing as she recently discovered she has strong family history of T2DM on her paternal side. Review of Systems Objective Vitals: 02/21/25 1537 BP: 132/84 Pulse: 88 Resp: 20 Temp: 97.8 ??F (36.6 ??C) Physical Exam Constitutional: Appearance: Normal appearance. She is normal weight. Cardiovascular: Rate and Rhythm: Normal rate and regular rhythm. Pulses: Normal pulses. Heart sounds: Normal heart sounds. No murmur heard. No friction rub. No gallop. Pulmonary: Effort: Pulmonary effort is normal. No respiratory distress. Breath sounds: Normal breath sounds. No wheezing or rales. Neurological: General: No focal deficit present. Mental Status: She is alert and oriented to person, place, and time. Psychiatric: Mood and Affect: Mood normal. Behavior: Behavior normal. Thought Content: Thought content normal. Judgment: Judgment normal. Assessment/Plan Problem List Items Addressed This Visit None Visit Diagnoses Family history of diabetes mellitus (DM) - Primary Relevant Orders Hemoglobin A1c Bacterial vaginosis Relevant Medications metroNIDAZOLE (Flagyl) 500 MG tablet fluconazole (Diflucan) 150 MG tablet Other Relevant Orders Bacterial Vaginosis Panel Will obtain vaginal swab to confirm BV and or yeats infection Given patients history of recurrent BV I will treat empirically based on symptoms. I also sent diflucan due to recent antibx use and risk for henry infection. Oral flagyl also beneficial for her perioral dermatitis we may consider standing order for this medication during flares. Follow up in about 3 months (around 05/22/2025) for F/u chronic conditions. documented in this encounter Miscellaneous Notes * Addendum Note - Bettye Harper CNP - 02/21/2025 3:15 PM ESTAddended by: BETTYE HARPER on: 02/21/2025 04:24 PM Modules accepted: Orders documented in this encounter Plan of Treatment Scheduled Orders Name Type Priority Associated Diagnoses Orde r Schedule Hemoglobin A1c Lab Routine Family history of diabetes mellitus (DM) Expected: 02/21/2025 (Approximate), Expires: 02/21/2026 Bacterial Vaginosis Panel Microbiology Routine Bacterial vaginosis Ordered: 02/21/2025 Scheduled Referrals Name Type Priority Associated Diagnoses Orde r Schedule Referral to Vascular Surgery Outpatient Referral Routine History of insertion of vertebral artery stent Expected: 02/21/2025 (Approximate), Expires: 02/21/2026 documented as of this encounter Visit Diagnoses Diagnosis Family history of diabetes mellitus (DM)- Primary Family history of diabetes mellitus Bacterial vaginosis Unspecified vaginitis and vulvovaginitis History of insertion of vertebral artery stent documented in this encounter Additional Health Concerns Assessment Noted Time PHQ-9 Depression Total Score: 13 025 3:58 PM EST documented as of this encounter Care Teams Police Detention Attendant Relationship Specialty Start Date End Date Bettye Harper CNP PCP - General Family Medicine 10/30/24 documented as of this encounter
--- OUTSIDE RECORDS SUMMARY | 2025-02-21 19:49 | XMS_ITS | Data Portability ---
Author Organization [place] - [facility], Allergy Address [address] [address] Assessment No assessment recorded. Plan of Treatment [...] bacterial culture Final report Not Available [facility] ([facility]) [address] [facility], [place], [address], 09/12/2023 08:25:46 08/11/19 24 08/14/2023 AEROB IC BACTE RIAL CULTU RE result 1 Mixed site nhung. Heavy growt h Not Available [facility] ([facility]) [address] [facility], [place], [address], 09/12/2023 08:25:46 08/11/1909/12/2023 FUNGU S (MYCO LOGY) CULTU RE fungus (mycology) culture Final report Not Available [facility] ([facility]) [address] [facility], [place], [address], 09/12/2023 08:25:46 08/11/19 24 09/12/2023 FUNGU S (MYCO LOGY) CULTU RE result 1 COMMEN T No yeast or mold isola silviano after 4 weeks . Not Available [facility] ([facility]) [address] [facility], [place], [address], 09/12/2023 08:25:46 11/08/1901/01/2020 imagi ng/di agnos tic resul t No observ ation record ed. [email or web address] Not Available 06:00:11 Result Notes None recorded. 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, postural; Note: Date Diagnosed : 07/22/2019 2:25 PM (I95.1) Not Available [facility] 4 02:23:25 Impacted cerumen of bilateral ears 70302801659 26282 Active 2019 Impacted cerumen, bilateral ; Note: Date Diagnosed : 07/22/2019 2:25 PM (H61.23) Not Available [facility] 4 02:23:54 Abnormal auditory perceptio n 82179630 Active 2019 Other abnormal auditory perceptio ns, bilateral ; Note: Date Diagnosed : 07/22/2019 2:25 PM (H93.293) Not Available [facility] 4 02:23:31 Chronic tonsillit is 99736719 Active 2019 Chronic tonsillit is; Note: Date Diagnosed : 12/03/2019 10:49 AM (J35.01) Not Available [facility] 4 02:23:17 Bilateral temporoma ndibular joint pain 47402893659 317471 Active 2019 Arthralgi a of bilateral temporoma ndibular joint; Note: Date Diagnosed : 12/03/2019 10:49 AM (M26.623) Not Available [facility] 4 02:23:26 Migraine without aura, not refractor y 135044939 Active 2019 Migraine without aura, not intractab le, without status migrainos us; Note: Date Diagnosed : 0 5:18 PM (G43.009) Not Available [facility] 4 02:23:36 Dizziness and giddiness 210096089 Active 2019 Dizziness and giddiness ; Note: Date Diagnosed : 0 5:18 PM (R42) Not Available [facility] 4 02:23:18 Cardiac arrhythmi a 510682718 Active 2019 Other specified cardiac arrhythmi as; Note: Date Diagnosed : 0 5:17 PM (I49.8) Not Available [facility] 4 02:23:16 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, unspecifi ed; Note: Changed from Q79.6 to Q79.60 ( 2 5:30 PM) , Date Diagnosed : 0 5:17 PM (Q79.6) Not Available [facility] 4 02:23:43 Disorder of nasal sinus 4097085 Active 2021 Other specified disorders of nose and nasal sinuses; Note: Date Diagnosed : 06/28/2021 4:18 PM (J34.89) Not Available [facility] 4 02:23:16 Disorder of the nose 24942316 Active 2021 Other specified disorders of nose and nasal sinuses; Note: Date Diagnosed : 06/28/2021 4:18 PM (J34.89) Not Available [facility] 4 02:23:16 Deviated nasal septum 860397088 Active 2021 Deviated nasal septum; Note: Date Diagnosed : 06/28/2021 4:17 PM (J34.2) Not Available [facility] 4 02:23:40 Cystic fibrosis 230099355 Active 2021 Cystic fibrosis NOS-Other and unspecifi ed disorders of metabolis m:; Note: Date Diagnosed : 06/28/2021 4:17 PM (277.00) Not Available [facility] 4 02:23:34 Recurrent acute streptoco ccal tonsillit is 31574885526 741416 Active 2023 Acute recurrent streptoco ccal tonsillit is; Note: Date Diagnosed : 07/20/2023 4:57 PM (J03.01) Not Available [facility] 4 02:23:25 Chronic rhinitis 97275270 Active 2023 Chronic rhinitis; Note: Date Diagnosed : 07/20/2023 4:58 PM (J31.0) Not Available [facility] 4 02:23:51 Chronic disease of tonsils AND/OR adenoids 86005382 Active 2023 Calculus, tonsil; Note: Date Diagnosed : 07/20/2023 4:57 PM (J35.8) Not Available [facility] 4 02:23:54 Candidias is of mouth 61265554 Active 2023 Lisa campos [facility] 16:08:40 Breath smells unpleasan t 50820527 Active 2023 Lisa campos [facility] 4 16:09:11 Amygdalol ith 2910747 Active 2023 Lisa campos [facility] 13:31:35 Problem Notes None recorded. Medical Equipment None Reported. Allergies Allergen ID Allergen Name Allergen Category Reaction Reaction Severity Criticality Documentation Date Start Date Code Code System Note Provider Name and Address Organization Details Recorded Time 184977 blue dye medicatio n Not available Not available Not available 08/11/2023 KENROY Ontiveros [facility] 4 15:48:34 98405 tree and shrub pollen environme nt,medica tion other Not available Not available 08/01/2023 React ion: unkno wn, unspe cifie d;; Not Available [facility] 4 00:53:54 24523 Glycine max (substanc e) environme nt,food,m edication other Not available Not available 08/01/2023 03949 5007 SNOMED React ion: unkno wn, unspe cifie d;; Not Available [facility] 4 00:54:01 Medications Name Sig Start Date Stop Date Status Note LastModified by Organization Details LastModified Time nystatin 100,000 unit/mL oral suspensio n Take 5 ml by mouth four times a day 2023 active Medicatio n ID: [id number] Du ration Value: 21 Brand Name: nystatin Send Method: E-Prescri bed Subs Allowed: subs OK Medica tionGener icName: nystatin Not Available Not Available Not Available amoxicill in 875 mg tablet 01/28 completed Medicatio n ID: [id number] Du ration Value: 10 Brand Name: amoxicill [...] mg tablet 2019 active Medicatio n ID: [id number] Du ration Value: 90 Brand Name: Zoraida [...] Updated DateTime 08/11/2023 180.34 cm 27.1 kg/m2 44291.92 g Real Barcenas [place] - [facility] 08/11/2023 15:48:19 Social History None recorded. Functional Status Question Answer Note LastModified by Organizat ion Details LastModified Time Do you use any illicit or recreational drugs? No [email or web address] Information not available 08/11/2023 Do you or have you ever used any other forms of tobacco or nicotine? No [email or web address] Information not available 08/11/2023 What is your level of alcohol consumption? None [email or web address] Information not available 08/11/2023 Mental Status None recorded. Family History Nothing Reported. Medical History No medical history recorded. Gynecological HistoryNo gynecological history recorded. Obstetrics History GPAL:G 0 P 0 0 0 0 Past Encounters Encounter ID Performer Location Encounter Start Date Encounter Closed Date Diagnosis/Indication Diagnosis SNOMED-CT Code Diagnosis ICD10 Code Diagnosis IMO Codes Diagnosis Note [id number] LISA MOROCHO PA-C [facility] [address] [address] 08/11/2023 15:37:14 08/11/2023 16:17:35 Breath smells unpleasant 91153549 R19.6 Amygdalolith 3895587 J35 .8 Health Concerns Section Related Observation LastModified by Organization Detai ls LastModified Time None Recorded Concern Status LastModified by Organization Details LastModified Time None Recorded Advance Directives Directive None Recorded Payers Insurance Date Sequence Insurance Name Policy Number Policy Montoya Covered Member ID Montoya Member ID Guarantor Name 02/03/2025 1 [facility] [id number] Iris Garcia [id number] Iris Gacria 08/26/2024 1 [facility] PL[facility] (MEDICAID HMO) [id number] Iris Garcia [id number] Iris Garcia Notes Date Note Type [...] caries that need attention. RANULFO RODRIGUEZ MD [address] [place] [address], [phone], [facility] - [facility] 08/16/2023 16:47:27 OBGyn Episode No OBEpisode recorded.
--- OUTSIDE RECORDS SUMMARY | 2025-02-21 19:49 | XMS_ITS | Encounter Summary ---
Author Organization [employer] Address [address] [place] [address] 7 [place] [address] Care Team Providers Care Tie Puller Name Role Phone Yoko Zhang MD Primary Care Provider [phone] Cora Harper CNP Primary Care Provider [phone] Encounter Details Date Type Department Care Team (Late st Contact Info) Description 04/05/2022 Abstract [facility] MEDICINE [address] [place] [address] Yoko Zhang MD [address] [place] [address] Social History Tobacco Use Types Packs/Day Years Used Date Smoking Tobacco: Never Assessed Comments Unknown Sex and Gender Information Value Date Recorded Sex Assigned at Female 01/17/2022 10:36 AM EDT Legal Sex Female 10:36 AM EDT Gender Identity Female 01/17/2022 10:36 AM EDT Sexual Orientation Straight 02/21/2025 4: 42 PM EST documented as of this encounter Plan of Treatment Not on file documented as of this encounter Visit Diagnoses Not on filedocumented in this encounter Care Teams Tie Puller Relationship Specialty Start Date End Date Yoko Zhang MD [address] [place], [place] [phone] PCP - General Family Medicine 06/21/19 10/29/24 Cora Harper CNP [address] [place] [address] PCP - General Family Medicine 10/30/24 documented as of this encounter
--- OUTSIDE RECORDS SUMMARY | 2025-02-21 19:49 | XMS_ITS | Encounter Summary ---
Author Organization [employer] Address [address] [place] [address] Care Team Providers Care A P Supervisor Name Role Phone Cora Harper CNP Primary Care Provider [phone] Encounter Details Date Type Department Care Team (Latest Contact Info) Description 02/18/2025 Travel Social History Tobacco Use Types Packs/Day [...] on filedocumented in this encounter Care Teams A P Supervisor Relationship Specialty Start Date End Date Cora Harper CNP PCP - General Family Medicine 10/30/24 documented as of this encounter
--- OUTSIDE RECORDS SUMMARY | 2025-02-21 19:49 | XMS_ITS | Encounter Summary ---
Author Organization [employer] Address [address] 7[address] [place] [address] Care Team Providers Care Derrick Operator Name Role Phone Cora Harper CNP Primary Care Provider [phone] Encounter Details Date Type Department Care Team (Latest Contact Info) Description 02/21/2025 Travel Social History Tobacco Use Types Packs/Day [...] PM EST documented as of this encounter Functional Status * Over the past 2 weeks, how often have you been bothered by any of the following problems? Question Answer Date of Assessment Author Patient Health Questionnaire-2 Score 2 07/2024 3:58 PM Chel Perdomo [place] * Little interest or pleasure in doing things Answer Date of Assessment Author Several days 02/21/2025 3:58 PM EST Yohana Bose [place] * Feeling down, depressed, or hopeless Answer Date of Assessment Author Several days 02/21/2025 3:58 PM Yohana Perdomo [place] * Trouble falling or staying asleep, or sleeping too much Answer Date of Assessment Author More than half the days 02/21/2025 3:58 PM EST Chel Herman [place] * Feeling tired or having little energy Answer Date of Assessment Author More than half the days 02/21/2025 3:58 PM EST Chel Herman [place] * Poor appetite or overeating Answer [...] co ntrol worrying 1 02/21/2025 3:58 PM Chel Perdomo [place] Worrying too much about diff erent things 2 02/21/2025 3:58 PM Chel Perdomo [place] Trouble relaxing 2 02/21/2025 3:58 PM EST Chel Herman MA Being so restless that it is hard to sit still 3 02/21/2025 3:58 PM Chel Perdomo [place] Becoming easily annoyed or irritable 2 07/2024 3:58 PM Chel Perdomo [place] Feeling afraid as if somethi ng [...] Perdomo MA documented as of this encounter Plan of Treatment Not on file documented as of this encounter Visit Diagnoses Not on filedocumented in this encounter Additional Health Concerns Assessment Noted Time PHQ-9 Depression Total Score: 13 025 3:58 PM EST documented as of this encounter Care Teams Derrick Operator Relationship Specialty Start Date End Date Cora Harper CNP PCP - General Family Medicine 10/30/24 documented as of this encounter
--- OUTSIDE RECORDS SUMMARY | 2025-02-21 19:49 | XMS_ITS | Encounter Summary ---
Author Organization [employer] Address [address] [facility] 7 [place] [address] Care Team Providers Care Cigar Binder Name Role Phone Cora Harper CNP Primary Care Provider [phone] Reason for Visit * Reason Onset Date Comments chart prep 02/21/2025 Encounter Details Date Type Department Care Team ([facility] st Contact Info) Description 02/21/2025 Telephone [facility] CHC MED & PEDS [address] [place] [address] Cora Harper CNP [address] [place] [address] chart prep Social History Tobacco Use Types Packs/Day Years [...] PM EST documented as of this encounter Miscellaneous Notes * Telephone Encounter - Brandy Sood [place] - 02/21/2025 1:27 PM EST Chart Prep Labs: done Images: not applicable Referrals: not applicable Vaccines due: Covid, Flu, Hep B, and HPV Screenings: not applicable Overdue care gaps: SBIRT, PHQ-9, DASIA-7, and Disability screen documented in this encounter Plan of Treatment Not on file documented as of this encounter Visit Diagnoses Not on filedocumented in this encounter Additional Health Concerns Assessment Noted Time PHQ-9 Depression Total Score: 13 025 3:58 PM EST documented as of this encounter Care Teams Cigar Binder Relationship Specialty Start Date End Date Cora Harper CNP PCP - General Family Medicine 10/30/24 documented as of this encounter
--- OUTSIDE RECORDS SUMMARY | 2025-02-21 19:49 | XMS_ITS | Encounter Summary ---
Author Organization [employer] Address [address] [place] [address] 7 [place] [address] Care Team Providers Care Crown And Bridge Technician Name Role Phone Yoko Zhang MD Primary Care Provider [phone] Cora Harper CNP Primary Care Provider [phone] Encounter Details Date Type Department Care Team (Late st Contact Info) Description 04/11/[address] [facility] MEDICINE [address] [place] [address] Se Danielson, LettyD Social History Tobacco Use Types Packs/Day Years Used Date Smoking Tobacco: Never Assessed Comments Unknown Sex and Gender Information Value Date Recorded Sex Assigned at Female 01/17/2022 10:36 AM EDT Legal Sex Female 10:36 AM EDT Gender Identity Female 01/17/2022 10:36 AM EDT Sexual Orientation Straight 02/21/2025 4: 42 PM EST COVID-19 Exposure Response Date Recorded In the last 10 days, have yo u been in contact with someone who was confirmed or suspected to have Coronavirus/COVID-19? No / Unsure 04/12/2022 9:14 AM EST documented as of this encounter Plan of Treatment Not on file documented as of this encounter Visit Diagnoses Not on filedocumented in this encounter Care Teams Crown And Bridge Technician Relationship Specialty Start Date End Date Yoko Zhang MD [address] [place] [address] PCP - General Family Medicine 06/21/19 10/29/24 Cora Harper CNP [address] [place] [address] PCP - General Family Medicine 10/30/24 documented as of this encounter
--- OUTSIDE RECORDS SUMMARY | 2025-02-21 19:50 | XMS_ITS | Encounter Summary ---
Author Organization [employer] Address [address] [facility] 7t [place] [address] Care Team Providers Care Child Protective Services Specialist Name Role Phone Yoko Zhang MD Primary Care Provider [phone] Cora Harper CNP Primary Care Provider [phone] Reason for Visit * Reason Onset Date Comments Call Back Request 07/13/2023 Encounter Details Date Type Department Care Team ([facility] Contact Info) Description 07/13/2023 Telephone [facility] MEDICINE [address] [place] [address] Yoko Zhang MD [address] [place], [place] [phone] Call Back Request Social History Tobacco Use [...] [facility] [place] and needs a referral in order to bill insurance documented in this encounter Plan of Treatment Not on file documented as of this encounter Visit Diagnoses Not on filedocumented in this encounter Care Teams Child Protective Services Specialist Relationship Specialty Start Date End Date Yoko Zhang MD [address] [place] [address] PCP - General Family Medicine 06/21/19 10/29/24 Cora Harper CNP [address] [place] [address] PCP - General Family Medicine 10/30/24 documented as of this encounter
--- OUTSIDE RECORDS SUMMARY | 2025-02-21 19:50 | XMS_ITS | Encounter Summary ---
Author Organization [email or web address] Address [address] [facility] 7 [place] [address] Care Team Providers Care Engineering Officer Name Role Phone Cora Harper CNP Primary Care Provider [phone] Reason for Visit * Reason Onset Date Comments Appointment Request 12/06/2024 Encounter Details Date Type Department Care Team ([facility] Contact Info) Description 12/06/2024 Telephone [facility] CHC MED & PEDS [address] [place], [place] [phone] Cora Harper CNP [address] [place] [address] Appointment Request Social History Tobacco Use Types [...] to schedule derm apt Contact pt at [phone] documented in this encounter Plan of Treatment Not on file documented as of this encounter Visit Diagnoses Not on filedocumented in this encounter Care Teams Engineering Officer Relationship Specialty Start Date End Date Cora Harper CNP PCP - General Family Medicine 10/30/24 documented as of this encounter
--- OUTSIDE RECORDS SUMMARY | 2025-02-21 19:50 | XMS_ITS | Encounter Summary ---
Author Organization [employer] Address [address] [facility] 7t [place] [address] Care Team Providers Care Tool Room Lathe Operator Name Role Phone Cora Harper CNP Primary Care Provider [phone] Encounter Details Date Type Department Care Team ([facility] st Contact Info) Description 02/11/2025 Results Follow-Up [facility] CHC MED & PEDS [address] [place], [place] [phone] Hina Shay MD [address] [place] [address] POCT Urinalysis, Bacterial Vaginosis Panel Social History Tobacco Use Types Packs/Day Years [...] t he electric, gas, oil or water [employer] threatened to shut off services in your [...] on filedocumented in this encounter Care Teams Tool Room Lathe Operator Relationship Specialty Start Date End Date Cora Harper CNP PCP - General Family Medicine 10/30/24 documented as of this encounter
--- OUTSIDE RECORDS SUMMARY | 2025-02-21 19:50 | XMS_ITS | Encounter Summary ---
Author Organization [employer] Address [address] [facility] 7t [place] [address] Care Team Providers Care Art Studio Teacher Name Role Phone Cora Harper CNP Primary Care Provider [phone] Encounter Details Date Type Department Care Team (Latest Contact Info) Description 02/17/2025 Results Follow-Up [facility] CHC MED & PEDS [address] [place], [place] [phone] Cora Harper CNP [address] [place] [address] Lipid Panel, Standard, CBC auto differential, Comprehensive Metabolic Panel, Additional followed-up results: 2 Social History Tobacco Use Types Packs/Day Years [...] on filedocumented in this encounter Care Teams Art Studio Teacher Relationship Specialty Start Date End Date Cora Harper CNP PCP - General Family Medicine 10/30/24 documented as of this encounter
--- OUTSIDE RECORDS SUMMARY | 2025-02-21 19:50 | XMS_ITS | Encounter Summary ---
Author Organization [employer] Address [address] [facility] 7 [place] [address] Care Team Providers Care Brine Well Operator Name Role Phone Cora Harper CNP Primary Care Provider [phone] Reason for Visit * Reason Onset Date Comments Results 02/17/2025 Encounter Details Date Type Department Care Team ([facility] st Contact Info) Description 02/17/2025 Telephone [facility] MED & PEDS [address] [place], [place] [phone] Cora Harper CNP [address] [place] [address] Results Social History Tobacco Use Types Packs/Day Years [...] encounter Miscellaneous Notes * Telephone Encounter - Meryl Ramos RN - 02/17/2025 9:41 AM EST TC to pt to review negative STI testing and review prophylaxis. No answer. VM left instructing pt to return call to office or respond to message on [employer] documented in this encounter Plan of Treatment Not on file documented as of this encounter Visit Diagnoses Not on filedocumented in this encounter Care Teams Brine Well Operator Relationship Specialty Start Date End Date Cora Harper CNP PCP - General Family Medicine 10/30/24 documented as of this encounter
--- OUTSIDE RECORDS SUMMARY | 2025-02-21 19:50 | XMS_ITS | Encounter Summary ---
Author Organization [employer] Address [address] [facility] 7t [place] [address] Care Team Providers Care Hot Dipper Name Role Phone Cora Harper CNP Primary Care Provider [phone] Reason for Visit * Reason Onset Date Comments Appointment Request 11/27/2024 Encounter Details Date Type Department Care Team ([facility] st Contact Info) Description 11/27/2024 Telephone [facility] MEDICINE [address] [place] [address] Cora Harper CNP [address] [place] [address] Appointment Request Social History Tobacco Use Types [...] t he electric, gas, oil or water [employer] threatened to shut off services in your [...] and rash returned. Please contact pt at [phone]. documented in this encounter Plan of Treatment Not on file documented as of this encounter Visit Diagnoses Not on filedocumented in this encounter Care Teams Hot Dipper Relationship Specialty Start Date End Date Cora Harper CNP PCP - General Family Medicine 10/30/24 documented as of this encounter
--- OUTSIDE RECORDS SUMMARY | 2025-02-21 19:50 | XMS_ITS | Encounter Summary ---
Author Organization [employer] Address [address] [facility] 7t [place] [address] Care Team Providers Care Sampler Pickup Name Role Phone Yoko Zhang MD Primary Care Provider [phone] Cora Harper CNP Primary Care Provider [phone] Reason for Visit * Reason Onset Date Comments Nurse Triage 03/28/2023 Encounter Details Date Type Department Care Team ([facility] st Contact Info) Description 03/28/2023 Telephone [facility] MEDICINE [address] [place] [address] Yoko Zhang MD [address] [place], [place] [phone] Nurse Triage Social History Tobacco Use Types [...] on filedocumented in this encounter Care Teams Sampler Pickup Relationship Specialty Start Date End Date Yoko Zhang MD [address] [place] [address] PCP - General Family Medicine 06/21/19 10/29/24 Cora Harper CNP [address] [place] [address] PCP - General Family Medicine 10/30/24 documented as of this encounter
--- OUTSIDE RECORDS SUMMARY | 2025-02-21 19:50 | XMS_ITS | Clinical Summary ---
Author Organization [employer] Address [address] [facility] 7t [place] [address] Care Team Providers Care First Responder Name Role Phone Cora Harper CNP Primary Care Provider [phone] Allergies Active Allergy Reactions Criticality Noted Date Comments Blue Dye #1 ([place] Blue) Unknown 12/31/2024 Dust Mite Extract 04/09/2022 Flax Seed Oil 05/24/2022 Iodinated Contrast Media 12/31/2024 Molds & Smuts 04/09/2022 Pollen Extract Other,Unknown 12/31/2024 tree and shrub pollen Soy Allergy (Obsolete) Other,Unknown 12/31/2024 Glycine max (substance) Soybean-Containing Drug Products Unknown 06/10/2020 Other reaction(s): Unknown Medications butalbital-acet aminophen-caffe ine 50-325-40 MG tablet TAKE 1 TABLET BY MOUTH EVERY 4 HOURS NEEDED FOR HEADACHE 04/07/19 23 Active prochlorperazin e (Compazine) 5 MG tablet TAKE 1 TABLET BY MOUTH 3 TIMES A DAY NEEDED FOR NAUSEA/VOMITIN G 04/07/19 23 Active Senna-Plus 8.6-50 MG tablet [...] mouth 1 (one) time each day. 04/16/19 Active gabapentin (Neurontin) 300 MG capsule Take 1 capsule by mouth in the morning. 04/16/19 Active HPV 9-valent (Gardasil-9) suspension prefilled syringe vaccine prefilled syringeIndicati ons:Need for prophylactic vaccination/timbo culation against viral disease Bring to office for appointment 0.5 mL 2 05/25/19 Active pantoprazole (ProtoNix) 20 MG EC tabletIndicatio ns:Tricia-Danlo s syndrome TAKE 1 TABLET (20 MG) BY MOUTH BEFORE BREAKFAST. 90 tablet 3 07/26/19 Active clobetasol (Temovate) 0.05 % ointment Apply to affected area twice a day x 7 days 30 g 09/05/19 24 Active Chlorhexidine Gluconate (Hibiclens) 4 % solutionIndicat ions:Folliculit is Rinse area with water, then cover affected skin, wash gently. Rinse again thoroughly. 236 mL 1 12/10/19 Active metroNIDAZOLE (Metrogel) 0.75 % gelIndications: Perioral dermatitis Apply topically 2 times daily. 45 g 02/19/20 25 2025 Active metroNIDAZOLE (Flagyl) 500 MG tabletIndicatio ns:Bacterial vaginosis Take 1 tablet (500 mg) by mouth 2 times daily for 7 days. 14 tablet 02/22/20 25 2024 Active fluconazole (Diflucan) 150 MG tabletIndicatio ns:Bacterial vaginosis Take 1 tablet (150 mg) by mouth 1 (one) time for 1 dose. 1 tablet 02/22/20 25 2024 Active metroNIDAZOLE (MetroCream) 0.75 % creamIndication s:Rosacea Apply topically 2 times daily. Apply to affected area only. 45 g 2 04/15/19 25 2024 Discontinued(T herapy completed) metroNIDAZOLE (Flagyl) 500 MG tablet Take 1 tablet (500 mg) by mouth 2 times daily for 7 days. 14 tablet 02/11/20 25 2024 metroNIDAZOLE (Metrogel) 0.75 % vaginal gel Insert into the vagina 2 (two) times a week. 70 g 02/11/20 25 2024 Discontinued Active Problems Problem Noted Date Diagnosed Date [...] Encounters Date Type Department Care Team Description 02/21/2025 3:15 PM EST Office Visit [facility] [address] [place] [address] Cora Harper CNP Family history of diabetes mellitus (DM) (Primary Dx); Bacterial vaginosis; History of insertion of vertebral artery stent 02/21/2025 Travel 02/21/2025 Telephone [facility] [address] [place] [address] Cora Harper CNP chart prep 02/18/2025 10:30 AM EST Office Visit [facility] [address] [place] [address] Nae Villareal MD Perioral dermatitis (Primary Dx); Seborrheic keratosis 02/18/2025 Travel 02/17/2025 Telephone [facility] [address] [place] [address] Cora Harper CNP Results 02/17/2025 Results Follow-Up [facility] [address] [place] [address] Cora Harper CNP Lipid Panel, Standard, CBC auto differential, Comprehensive Metabolic Panel, Additional followed-up results: 2 02/11/2025 Results Follow-Up [facility] [address] [place] [address] Hina Shay MD POCT Urinalysis, Bacterial Vaginosis Panel 02/10/2025 11:15 AM EST Office Visit [facility] [address] [place] [address] Hina Shay MD Subacute vaginitis (Primary Dx) 02/10/2025 Travel 02/03/2025 Telephone [facility] [address] [place] [address] Cora Harper CNP Nurse Triage 12/31/2024 2:30 PM EDT Office Visit [facility] [address] [place] [address] Cora Harper CNP Encounter for physical examination (Primary Dx); Chronic left shoulder pain; Palpitations; POTS (postural orthostatic tachycardia syndrome); Environmental and seasonal allergies; Tricia-Danlos syndrome; Attention deficit hyperactivity disorder (ADHD), combined type; Gastrointestinal dysmotility 12/31/2024 Travel 12/24/2024 Patient Outreach [address] [address] Cora Harper CNP Pre-visit Planning (SDOH Screening negative and Tobacco screening negative) 12/11/2024 Telephone [facility] [address] [place] [address] Cora Harper CNP derm appt 12/09/2024 5:20 PM EDT Office Visit [facility] [address] [place] [address] Nae Villareal MD Folliculitis (Primary Dx); Elevated BP without diagnosis of hypertension 12/09/2024 Travel 12/06/2024 Telephone [facility] [address] [place] [address] Cora Harper CNP Nurse Triage 12/06/2024 Telephone [facility] [address] [place], [place] [phone] Croa Harper CNP Appointment Request 11/27/2024 Telephone [facility] [address] [place] [phone] Cora Harper CNP Appointment Request 11/27/[address] [phone] Cora Harper CNP Appointment Request from Last [...] Orientation Straight 02/21/2025 4: 42 PM EST Last Filed Vital Signs Vital Sign Reading Time Taken Comments Blood Pressure 132/84 02/21/2025 3:37 PM EST Pulse 88 02/21/2025 3:37 PM EST Temperature 36.6 C (97.8 F) 02/21/2025 3:37 PM EST Respiratory Rate 20 02/21/2025 3:37 PM EST Oxygen Saturation 98% 02/18/2025 10:36 AM EST Inhaled Oxygen Concentration - - Weight 101 kg (222 lb) 02/21/2025 3:37 PM EST Height 177.8 cm (5' 10 ) 02/21/2025 3:37 PM EST Body Mass Index 31.85 02/21/2025 3:37 PM EST Plan of Treatment Health Maintenance Due Date Last Done Comments Family Planning (PISQ) 06/07/2006 Hepatitis B Vaccines (1 of 3 - 19+ 3-dose series) 06/07/2010 HPV Vaccines (3 - 3-dose series) 12/17/2022 07/29/2022, 06/17/2022 COVID-19 Vaccine (2024-2 6 season) 2024 12/07/2023, 08/06/2020, 07/16/2020 Influenza Vaccine (#1) 2024 Cervical Cancer Screening 05/24/2025 HPV/Cotest 05/24/2025 05/24/2022, 02/02/2021 Pap Smear 05/24/2025 05/24/2022, 02/02/2021, 02/02/2021 Depression Monitoring 08/22/2025 02/21/2025 , 02/21/2025 SDOH Screening 12/24/2025 12/24/2024 Alcohol/Substance Use Screening 02/21/2026 02/21/2025 Disability Screening 02/21/2026 02/21/2025 Tobacco Screening 02/21/2026 02/21/2025 DTaP/Tdap/Td Vaccines (2 - T d or [...] 12:04 PM EST Encounter for physical examination C-REACTIVE PROTEIN Routine 02/10/2025 12 :03 PM EST Encounter for physical examination SED RATE BY MODIFIED WESTERGREN Routine 02/10/2025 12:03 PM EST Encounter for physical examination COMPREHENSIVE METABOLIC PANEL Routine 02/10/2025 12:03 PM EST Encounter for physical examination LIPID PANEL, STANDARD Routine 02/10/2025 12:03 PM EST Encounter for [...] Media Lot # [id number] Lot# Expiration Date [id number] Urine (Urine, Random) 02/10/2025 1:10 PM EST us Hina Shay MD POINT OF CARE TEST ENTER/EDIT ORDERABLES Final Result * (ABNORMAL) CBC auto differential (02/10/2025 12:04 PM EST) White Blood Count 4.4(L) 4.8 - 10.8 X10*3/uL [facility] Red Blood Count 5.16 4.20 - 5.50 X10*6/uL [facility] Hemoglobin 13.5 12.0 - 16.0 g/dl [facility] Hematocrit 41.9 37.0 - 47.0 % [facility] Mean Corpuscular Volume 81.2 80.0 - 98.0 fL [facility] Mean Corpuscular Hemoglobin 26.2(L) 27.0 - 33.0 pg [facility] Mean Corpuscular HGB Conc 32.2 31.0 - 35.0 g/dl [facility] Red Cell Distribution Width 12.9 11.0 - 16.0 % [facility] Platelet Count 204 160 - 400 X10*3/uL [facility] Mean Platelet Volume 9.5 9.4 - 12.3 fL [facility] Neutrophils Percent Auto 59.2 45 - 73 % [facility] Imm Gran Pct Auto 0.2 0.0 - 0.4 % [facility] Lymphocytes Percent Auto 31.0 20 - 40 % [facility] Monocytes Percent Auto 5.5 2 - 11 % [facility] Eosinophils Percent Auto 3.4 0 - 4 % [facility] Basophils Percent Auto 0.7 0 - 2 % [facility] NRBC Pct Auto 0.0 0.0 - 0.2 /100WBC [facility] Neutrophils Absolute Auto 2.6 2.0 - 8.3 x10*3/uL [facility] Imm Gran Abs Auto 0.01 0.00 - 0.03 X10*3/uL [facility] Lymphocytes Absolute Auto 1.4 1.2 - 4.9 X10*3/uL [facility] Monocytes Absolute Auto 0.2 0.1 - 1.2 X10*3/uL [facility] Eosinophils Absolute Auto 0.2 0.0 - 0.4 X10*3/uL [facility] Basophils Absolute Auto 0.0 0.0 - 0.2 X10*3/uL [facility] NRBC Abs Auto 0.000 0.0 - 0.012 X10*3/uL [facility] Blood Venous blood specimen / Unknown 02/10/2025 12:04 PM EST 02/10/2025 2:18 PM EST Result [facility] LAB BLOOD ORDERABLES Diana l Result Performing Organization Address City/[facility]/ZIP Co de Phone Number [facility] [address] [place] [phone] * Sed Rate by Modified Kiet (02/10/2025 12:03 PM EST) Erythrocyte Sedimentation Rate 6 0 - 20 MM/HR [facility] Comment:Patients with polycy themia and many hemoglobin abnormalitiesmay have depressed sed rates whereas patients with anemiamay have elevated sed rates. Blood Venous blood specimen / Unknown 02/10/2025 12:03 PM EST 02/10/2025 2:18 PM EST Result [facility] LAB BLOOD ORDERABLES Diana l Result [facility] [address] [place] [phone] * C-reactive Protein (02/10/2025 12:03 PM EST) C Reactive Protein 0.20 < or = 0.50 mg/dL [facility] Blood Venous blood specimen / Unknown 02/10/2025 12:03 PM EST 02/10/2025 2:01 PM EST us Alexxis Harper [employer] LAB BLOOD ORDERABLES Diana l Result Performing Organization Address [facility] Co de Phone Number [facility] [address] [place] [phone] * (ABNORMAL) Lipid Panel, Standard (02/10/2025 12:03 PM EST) Triglycerides 88 <150 mg/dL [facility] Comment:Desirable Triglyceri de: less than 150 mg/dLBorderline High Triglyceride 150-199 mg/dLHigh Triglyceride: 200-499 mg/dLVery High Triglyceride: greater than or equal to 5OO mg/dL Cholesterol 276(H) <200 mg/dL [facility] Comment:Desirable Cholestero l: less than 200 mg/dLBorderline High Cholesterol: 200-239 mg/dLHigh Cholesterol: greater than 239 mg/dL LDL Cholesterol Calculated 203(H) <100 mg/dL [facility] Comment:Desirable LDL: less than 100 mg/dLNear Optimal/Above Optimal LDL: 110- 129 mg/dLBorderline High LDL: 130-159 mg/dLHigh LDL: 160-189 mg/dLVery High LDL: greater than or equal to 190 mg/dL HDL Cholesterol 56 >40 mg/dL [facility] Comment:Desirable HDL: great er than 40 mg/dL Note: This HDL assay may give artificially low results in patients with liver disease. Blood Venous blood specimen / Unknown 02/10/2025 12:03 PM EST 02/10/2025 2:01 PM EST [facility] LAB BLOOD ORDERABLES Diana l Result Performing Organization Address [facility]/ZIP Co de Phone Number [facility] [address] [place] [address] [phone] * (ABNORMAL) Comprehensive Metabolic Panel (02/10/2025 12:03 PM EST) Sodium 140 135 - 145 mmol/L [facility] Potassium 4.1 3.3 - 5.1 mmol/L [facility] Chloride 108 96 - 108 mmol/L [facility] Carbon Dioxide 25 22 - 29 mmol/L [facility] Anion Gap 11(L) 12 - 20 [facility] Urea Nitrogen (BUN) 13 9 - 16 mg/dL [facility] Creatinine, Serum 0.83 0.5 - 1.4 mg/dL [facility] Estimated Glomerular Filt Rate >60 [facility] Comment:Chronic Kidney Disea se: Estimated GFR < 60 mL/min/1.84r1Ecgmfq Kidney Disease: Estimated GFR < 15 mL/min/1.73m2 Glucose 89 60 - 115 mg/dL [facility] Calcium 9.6 8.4 - 10.2 mg/dL [facility] Bilirubin, Total 0.5 0.0 - 1.0 mg/dL [facility] Aspartate Amino Transferase 19 5 - 31 U/L [facility] Alanine Aminotransferase 12 0 - 31 U/L [facility] Total Protein 7.2 6.5 - 8.0 g/dL [facility] Albumin Level 4.7 3.5 - 5.0 g/dL [facility] Alkaline Phosphatase 51 39 - 117 U/L [facility] Blood Venous blood specimen / Unknown 02/10/2025 12:03 PM EST 02/10/2025 2:[address] [facility] LAB BLOOD ORDERABLES Diana l Result [facility] [address] [place] [phone] * Bacterial Vaginosis Panel (02/10/2025 11:30 AM EST) TRICHOMONAS VAGINALIS DETECTION BY PCR NOT DETECTED Not Detect [facility] BACTERIAL VAGINOSIS DETECTION BY PCR NEGATIVE Negative [facility] Comment:The BV organism targ ets of [...] DETECTION BY PCR NOT DETECTED Not Detect [facility] Lashawn glab krusei PCR NOT DETECTED Not Detect [facility] Swab Vaginal structure / Unknown 02/10/2025 11:30 AM EST 02/10/2025 2:23 PM EST Hina Shay MD LAB MICROBIOLOGY - GENERAL OR DERABLES Final Result [facility] [address] [place] [phone] * ECG 12 lead (01/01/2025 12:48 PM EDT) Narrative Cora Harper CNP - 01/01/2025 12:48 PM EDT NSR, Rate 82bpm, RSR' in V1 and V2, no acute abnormalities. Pending cosign: Preethi Alvarado MD [place] Harper [facility] ECG ORDERABLES Final Res ult * HIV-1/2 Antigen and Antibodies, Fourth Generation, with Reflexes (05/23/2023 3:09 PM EST) Pathologist [facility] HIV AB/AG Nonreactive Nonreactive [facility] Comment:HIV-1 p24 Ag and/or HIV-1/HIV-2 Ab not detected.A test result that is nonreactive does not exclude thepossibility of exposure to or infection with HIV-1 and/orHIV-2. Nonreactive results in this assay for individualswith prior exposure to HIV-1 and/or HIV-2 may be due toantigen and antibody levels that are below the limit ofdetection of this assay.The [employer] HIV Ag/Ab Combo assay result andsupplemental assay results should be interpreted inconjunction with the patient's clinical presentation,history and other laboratory results. If the results areinconsistent with clinical evidence, additional testing issuggested to confirm the result. Blood Venous blood specimen / Unknown 05/23/2023 3:09 PM EST 05/23/2023 5:30 PM EST us Ana María ARORA LAB BLOOD ORDERABLES Diana phillips Result [facility] [address] [place] [phone] * (ABNORMAL) Hepatitis Panel, General (07/15/2022 12:44 PM EDT) Hepatitis A Antibody Total REACTIVE( A) NON-REACT POLI [employer] Comment: For additional information, please refer to http://[employer]/faq/HLV135 (This link is being provided for informational/ educational purposes only.) Hepatitis B Surface Antibody QL REACTIVE( A) NON-REACT [employer]IC[employer] Hepatitis B Surface Ag NON-REACT POLI NON-REACT POLI [employer] Hepatitis B Core Antibody Total NON-REACT POLI NON-REACT POLI [employer] Hepatitis C Antibody NON-REACT POLI NON-REACT POLI [employer] [employer] Index 0.10 <1.00 [facility] [employer] Comment: HCV antibody was non-reactive. There is no laboratory evidence of HCV infection. In most cases, no further action is required. However, if recent HCV exposure is suspected, a test for HCV RNA (test code 57484) is suggested. For additional information please refer to http://[employer]/faq/ZLI51c8 (This link is being provided for informational/ educational purposes only.) 07/15/2022 12:4 4 PM EDT 07/15/2022 12:44 PM EDT Narrative [facility] - 07/15/2022 11:27 PM EDT FASTING:YES FASTING: YES Yoko Zhang MD LAB BLOOD ORDERABLES Final Resul t [facility] [address], [place] [address] [employer] [address] [place] [phone] * Image-Guided Pap with Age-Based Screening Protocols (05/24/2022 12:31 PM EST) Comment [facility] Comment: This order for age-based cervical cancer and STI screening follows ACOG guidelines(PB 168, 140, QWI128). See individual assays for performing site location. Clinical Information: None given [facility] LMP: 05/13/22 [employer] [place] [employer] Prev. PAP: YES [employer] Prev. BX: YES [facility] SOURCE: None given [facility] Statement Of Adequacy: [facility] Comment: Satisfactory for evaluation. Endocervical/transformation zone component present. Interpretation/ Result: Negative for intraepithelial lesion or malignancy. [facility] Comment: This Pap test has been evaluated with computer assisted technology. [employer] Cytotechnologis t: [facility] [place] [employer] Comment: RK, CT(ASCP) CT screening location: [place] [address] Review [employer]olog[employer] t: [employer] [place] [employer] Comment: MXD, CT (ASCP) CT screening location: [place] [address] (Always Message) [facility] Comment: EXPLANATORY NOTE: The Pap is a [...] HPV nRNA E6/E7 Not Detected Not Detected [facility] Comment: Methodology: Wood Craftsman-Mediated Amplification This assay detects E6/E7 viral messenger RNA (mRNA) from 14 high-risk HPV types (16,18,31,33,35,39,45,51,52,56,58,59,66,68). Cervical sources are required for HPV testing. If a vaginal source from a patient who has had a total hysterectomy with removal of cervix was submitted, please contact the testing laboratory for alternative testing options. For additional information, please refer to http://education.[employer]/faq/PWW164u1 (This link if provided for information/ educational purposes only.) Specimen from uterine cervix (specimen) 05/24/2022 12:31 PM EST 05/25/2022 8:31 AM EST Ana María Jo [facility] LAB BLOOD ORDERABLES Diana l Result [facility] [address], [place] [address] [facility] [address], ([address]) [place] [phone] from Last 3 Months or Most Recently Relevant to Health Maintenance Insurance [facility] 3 Care Teams First Responder Relationship Specialty Start Date End Date Cora Harper CNP PCP - General Family Medicine 10/30/24
--- OUTSIDE RECORDS SUMMARY | 2025-02-21 19:50 | XMS_ITS | Encounter Summary ---
Author Organization [email or web address] Address [address] [facility] [address] [place] [address] Care Team Providers Care Marketing Communications Leader Name Role Phone Yoko Zhang MD Primary Care Provider [phone] Cora Harper CNP Primary Care Provider [phone] Reason for Visit * Reason Onset Date Comments Nurse Triage 10/04/2022 Encounter Details Date Type Department Care Team ([facility] st Contact Info) Description 10/04/2022 Telephone [facility] [address] [place] [address] Yoko Zhang MD [address] [place], [place] [phone] Nurse Triage Social History Tobacco Use Types [...] aware of Pt allergies. Apt 10/18 @ [facility]. Insurance is verified as active prior [...] on filedocumented in this encounter Care Teams Marketing Communications Leader Relationship Specialty Start Date End Date Yoko Zhang MD [address] [place] [address] PCP - General Family Medicine 06/21/19 10/29/24 Cora Harper CNP [address] [place] [address] PCP - General Family Medicine 10/30/24 documented as of this encounter
--- OUTSIDE RECORDS SUMMARY | 2025-02-21 19:50 | XMS_ITS | Encounter Summary ---
Author Organization [employer] Address [address] [facility] [address] [place] [address] Care Team Providers Care Special Inspector Name Role Phone Yoko Zhang MD Primary Care Provider [phone] Cora Harper CNP Primary Care Provider [phone] Encounter Details Date Type Department Care Team ([facility] st Contact Info) Description 05/05/2024 Orders Only [facility] [address] [place], [place] [phone] Nae Villareal MD [address] [place] [address] Social History Tobacco Use Types Packs/Day Years [...] on filedocumented in this encounter Care Teams Special Inspector Relationship Specialty Start Date End Date Yoko Zhang MD [address] [place] [address] PCP - General Family Medicine 06/21/19 10/29/24 Cora Harper CNP [address] [place] [address] PCP - General Family Medicine 10/30/24 documented as of this encounter
--- OUTSIDE RECORDS SUMMARY | 2025-02-21 19:50 | XMS_ITS | Encounter Summary ---
Author Organization [employer] Address [address] [facility] [address] [place] [address] Care Team Providers Care Soiled Linen Distributor Name Role Phone Yoko Zhang MD Primary Care Provider [phone] Cora Harper CNP Primary Care Provider [phone] Encounter Details Date Type Department Care Team ([facility] st Contact Info) Description 03/17/2023 Orders Only [facility] [address] [place], [place] [phone] Nae Villareal MD [address] [place] [address] Vaginal discharge (Primary Dx) Social History Tobacco [...] infective documented in this encounter Care Teams Soiled Linen Distributor Relationship Specialty Start Date End Date Yoko Zhang MD [address] [place] [address] PCP - General Family Medicine 06/21/19 10/29/24 Cora Harper CNP [address] [place] [address] PCP - General Family Medicine 10/30/24 documented as of this encounter
[2025-02-22 01:47] LABS: Bacterial Vaginosis PCR NEGATIVE (Negative); Candida Group PCR NOT DETECTED (Not Detect); Candida glab krusei PCR NOT DETECTED (Not Detect); Trichomonas vaginalis PCR NOT DETECTED (Not Detect)
== END 2025-02-21 16:14 | disposition home or self-care (01) ==
LOC: HO.CHCLDS 16:13
DX: N76.0 Acute vaginitis (principal); B96.89 Other specified bacterial agents as the cause of diseases classified elsewhere; Z83.3 Family history of diabetes mellitus
CPT/HCPCS: 36415; 81515; 83036